=== PATIENT | female | born 1985 | race Caucasian/White ===

== ENCOUNTER 2016-06-03 19:05 | Emergency (ER) | payer OTHER ==
[2016-06-03 19:22] VITALS: BP 105/74
--- NOTE | 2016-06-03 19:41 | UC ---
Complaint Female HPI - HPI Summary HPI Summary: burning with urination for a couple of days. has been getting here period q 2 weeks after starting bc for no period for 1 year - History Of Current Complaint Chief Complaint: UCGU Stated Complaint: UTI COMPLAINT Time Seen by Provider: 06/03/16 19:24 Hx Obtained From: Patient Hx Last Menstrual Period: 05/14/16 ?: No Onset/Duration: Sudden Onset, Lasting Days, Still Present Timing: Constant Severity Initially: Mild Severity Currently: Mild Pain Intensity: 4 Pain Scale Used: 0-10 Numeric Character: Burning Aggravating Factor(s): Urination Alleviating Factor(s): Nothing Associated Signs And Symptoms: Positive: Vaginal Bleeding/Discharge - Allergies/Home Medications Allergies/Adverse Reactions: Allergies Allergy/AdvReac Type Severity Reaction Status Date / Time No Known Allergies Allergy Verified 09/14/15 11:28 Home Medications: Home Medications Terbutaline TAB* [Brethine TAB 2.5 MG*] 2.5 mg PO Q6H 06/03/16 [History Confirmed 06/03/16] PMH/Surg Hx/FS Hx/Imm Hx Previously Healthy: Yes Endocrine History Of: Denies: Diabetes, Thyroid Disease Cardiovascular History Of: Denies: Cardiac Disorders, Hypertension Respiratory History Of: Denies: COPD, Asthma GI/ History Of: Denies: Ulcer Psychological History Of: Reports: Anxiety, Depression - Surgical History Surgical History: None - Family History Known Family History: Positive: None, Hypertension - Social History Occupation: Employed Part-time, Student Lives: With Family Alcohol Use: None Substance Use Type: None Smoking Status (MU): Never Smoked Tobacco - Immunization History Most Recent Influenza Vaccination: 01/08/15 Most Recent Tetanus Shot: 12/12/14 Most Recent Pneumonia Vaccination: unknown Review of Systems Constitutional: Negative Skin: Negative Eyes: Negative ENT: Negative Respiratory: Negative Cardiovascular: Negative Gastrointestinal: Negative Genitourinary: Dysuria Motor: Negative Neurovascular: Negative Musculoskeletal: Negative Neurological: Negative Psychological: Negative All Other Systems Reviewed And Are Negative: Yes Physical Exam Triage Information Reviewed: Yes Appearance: Well-Appearing, No Pain Distress, Well-Nourished Vital Signs: Initial Vital Signs Temp 97.2 F 06/03/16 19:16 Pulse 76 06/03/16 19:16 BP 105/74 06/03/16 19:16 Pulse Ox 100 06/03/16 19:16 Vital Signs Reviewed: Yes Eye Exam: Normal Eyes: Positive: Conjunctiva Clear ENT Exam: Normal ENT: Positive: Normal ENT inspection, Hearing grossly normal, Pharynx normal, TMs normal. Negative: Nasal congestion, Nasal drainage, Tonsillar swelling, Tonsillar exudate, Trismus, Muffled/hoarse voice Dental Exam: Normal Neck exam: Normal Neck: Positive: Supple, Nontender, No Lymphadenopathy Respiratory Exam: Normal Respiratory: Positive: Chest non-tender, Lungs clear, Normal breath sounds, No respiratory distress, No accessory muscle use Cardiovascular Exam: Normal Cardiovascular: Positive: RRR, No Murmur, Pulses Normal, Brisk Capillary Refill Abdominal Exam: Normal Abdomen Description: Positive: Nontender, No Organomegaly, Soft Bowel Sounds: Positive: Present Musculoskeletal Exam: Normal Musculoskeletal: Positive: Strength Intact, ROM Intact, No Edema Neurological Exam: Normal Neurological: Positive: Alert, Muscle Tone Normal Psychological Exam: Normal Skin Exam: Normal UC Physical Exam Vital Signs On Initial Exam: Initial Vitals Temp Pulse BP Pulse Ox 97.2 F 76 105/74 100 06/03/16 19:16 06/03/16 19:16 06/03/16 19:16 06/03/16 19:16 - Genitalia Exam Female Genitourinary: Normal Vaginal Exam - no external lesion or irratation, inner labia majora tender to touch Diagnostics - Laboratory Diagnostic Studies Completed/Ordered: ua wnl u preg (-) Complaint Female Dx - Course Course Of Treatment: affirm, apptima, diflucan, deoderant free pads, a&D oinment for skin protection follow with Dr. Coffman - Differential Dx/Diagnosis Differential Diagnosis/HQI/PQRI: Retained Foreign Body, Urinary Tract Infection Provider Diagnoses: excoration of labia, dysuria, low back pain menstral cramps Discharge - Discharge Plan Condition: Stable Disposition: HOME Prescriptions: Fluconazole 150 MG (NF) [Diflucan 150 mg (NF)] 150 mg PO ONCE #1 tab Patient Education Materials: Vaginitis (ED), Dysuria (ED) Referrals: Christiana Coffman MD [Medical Doctor] - 1 Week No Primary Care Phys,NOPCP [Primary Care Provider] -
[2016-06-03] MEDS ORDERED: Ibuprofen TAB* 400 MG PO ONE (20:12)
== END 2016-06-03 20:27 | disposition home or self-care (01) ==
LOC: UCEAST 19:05
DX: S30.814A Abrasion of vagina and vulva, initial encounter (principal); X58.XXXA Exposure to other specified factors, initial encounter; Y93.9 Activity, unspecified; Y92.9 Unspecified place or not applicable; R30.0 Dysuria; M54.5 Low back pain; R10.30 Lower abdominal pain, unspecified; Z32.02 Encounter for pregnancy test, result negative
CPT/HCPCS: 81003; 84702; 87480; 87491; 87510; 87591; 87661; 99212; A9270-GY; G0463

== ENCOUNTER 2017-03-13 09:44 | Emergency (ER) | payer OTHER ==
--- OUTSIDE RECORDS SUMMARY | 2017-03-13 10:05 | XMS REPORT ---
:1985 External Reference #:[id number] Author Organization [facility] Address [address] [place] [address] Phone [phone] Care Team Providers Name Role Phone Curtis Garcia MD Primary Care Physician Unavailable Payers Type Date Identification Numbers Payment Provider Subscriber Commercial Expires: Policy Number: [employer] Courtney Anderson 2014 [id number] Administrators [address] [place] [address] Commercial Policy Number: [id number] [facility] Courtney Anderson PayID: [id number] [address] [place] [address] Medigap Part B Policy Number: [id number] Medicaid [place] Courtney Anderson PayID: [id number] [address] [place] [address] Problems Date Description Provider Status Onset: 06/11/2014 Primigravida Addis Linares NP Resolved Resolved: 09/30/2015 Family History Date Family Member(s) Problem(s) Comments Father Kidney Stones Mother due to Cervical Cancer () Mother Glaucoma Mother Parkinson's Disease Mother Thyroid Disease Children 1 First Daughter A&W Siblings 2 First Brother A&W First Sister Ovarian Cancer First Sister Uterine Cancer Paternal Grandfather A&W Paternal Grandfather due to Natural Causes () Paternal Grandmother Arthritis Paternal Grandmother due to Natural Causes () Maternal Grandfather due to Stomach Cancer () Maternal Grandmother Breast Cancer Maternal Grandmother Glaucoma Maternal Grandmother Parkinson's Disease Maternal Grandmother Stroke Social History Type Date Description Comments Education Highest level completed, 2 years of college Marital Status Lives With Lives With Daughter Diet Healthy, Well Balanced Pets None Occupation [employer] [place] Cigarette Use Never Smoked Cigarettes ETOH Use Occasionally consumes alcohol Recreational Drug Use Denies Drug Use Smoking Patient has never smoked Daily Caffeine Consumes on average 1 cup of coffee per day Exercise Type/Frequency Exercises rarely Seat Belt/Car Seat Always uses seat belt Currently Active Patient is currently sexually active Contraceptive Methods Current methods include oral contraceptives STD's No STD History Allergies, Adverse Reactions, Alerts Date Description Reaction Status Severity Comments 12/26/2013 NKDA active Medications Medication Date Status Form Strength Qnty SIG Indications Ordering Provider Nitrofurantoin 03/11 Active Capsules 100mg 14cap one tablet [facility] Monohyd s by mouth Sylvia twice a day M.DMeghan x 7 days Lidocaine HCL 03/11 Active Gel 2% 60ml apply thin [facility] layer to jayna Ward M.D. vaginal opening (avoid clitoris) 30 minutes before inserting anything vaginally, then wipe off Loestrin Fe 10/13 Active Tablets 1.5-30mg- 84tab 1 by mouth N93.8 Dvora 1.08/03 mcg s every day Raina Ward Timoptic 02/26 Active Solution 0.5% 1unit Twice Daily Unknown Ocud s Trusopt 02/26 Active Solution 2% 1unit Twice Daily s Ibuprofen 01/25 Active Tablets 600mg 30tab take one tab Phael s by mouth MD Huma every 6 hours as needed for pain Timolol Maleate 00/00 Active Unknown /0000 Vitamin D 00 Active Unknown (Cholecalcifero /0000 l) Brethine 06/03 Hx Tablets 2.5mg Q6H Unknown Rep - 01/19 Diflucan 06/03 Hx Tablets 150mg 1tabs Once - 10/13 Diflucan 02/26 Hx Tablets 150mg 1tabs Once - 03/09 10/23 Hx Tablets 27-0.8mg 30tab Take 1 Brigid s Tablet By Franky, - Mouth Every CNM Estrace 09/18 Hx Cream 0.1mg/GM 42uni use 1 gram Christiana ts vaginally 3 Coffman, - times a week 03/09 at night /2016 Cephalexin 02/25 Hx Capsules 500mg 14cap 1 by mouth s twice a day Augustus, - day for 7 Norethindrone 02/25 Hx Tablets 0.35mg 84tab take 1 s tablet by MD Huma - mouth every /2016 Ferrous 01/25 Hx Tablets 325(36Fe) 100ta take 1 tab Phaelon Gluconate /2014 mg bs by mouth 1-2 MD Huma - times per Proctofoam HC 01/25 Hx Foam 1-1% 1unit apply to s hemorrhoids MD Huma - three times 01/26 a day needed for discomfort Nystatin 01/15 Hx Powder 719070Jdt 60gm apply t/GM sparingly to [place], - affected M.D. 01/26 area twice a /2014 day until itch resolves Hydrocortisone 01/08 Hx Cream 1% 30gm apply to Omega A. Acetate area bid Gelbiju, - M.D. 01/08 Hydrocortisone 01/08 Hx Cream 1% 28gm apply to Omega A. Intensive area twice a Gelber, Healing - day M.D. 01/26 Nystatin 12/24 Hx Ointment 105410Tol 15gm apply to t/GM area bid Racheal Coffman MD 01/25 Metrogel-Vagina 11/25 Hx Gel 0.75% 1tube insert 1 Matt l applicatorCinyd ponce, - l before bed 01/25 each for 1 week. Miconazole 11/04 Hx Cream 2% [facility] N[facility]rate area twice a , Cindy, - day for 2 Clotrimazole-7 09/24 Hx Cream 1% 1Tube 1 applicator Omega Posadas every night Gelbiju, - at bedtime x M.D. 09/24 Terazol 7 09/24 Hx Cream 0.4% 45gm 1 applicator Omega Posadas qhs Gelber, - M.D. 01/25 09/19 Hx Capsules 28-0.8-23 30cap 1 by mouth Brigid 5mg s every day or Wilkins, - generic CNM 10/23 vitamins Terazol 7 07/30 Hx Cream 0.4% 1trea 1 tmen application Jump, - per vagina ANP-C 08/06 at bedtime x 7 Macrobid 07/30 Hx Capsules 100mg 14cap 1 by mouth Cori s twice a day Jump, - ANP-C 08/06 Ranitidine HCL 07/23 Hx Capsules 150mg 60cap 1 po bid Omega A. s Gelber, - M.D. 01/16 Zofran Odt 07/15 Hx Tablets 8mg 60tab 1 by mouth Christiana Dispers s every 8 as Augustus, - needed 08/22 Colace 07/15 Hx Capsules 100mg 90cap 1 by mouth s three times Wilkins, - a day as CNM 09/18 needed constipation Timolol Maleate 06/26 Hx Solution 0.25% Strom Gen lipscomb - Selene 09/18 Diclegis 06/[address] 10-10mg 60tab take 2 tabs Omega A. s po qhs, if Gelber, - nausea M.D. 06/25 starting day #3 add 1 tab po qam, if nausea persists add 1 tab po day #4 Terconazole 06/11 Hx Cream 0.8% 20g use 1 Baclaws vaginal , Cindy, - applicator 06/17 every night at bedtime x 3 days Metrogel-Vagina 04/25 Hx Gel 0.75% 1TX 1 applicator 616.10 Cori every night Jump, - at bedtime x ANP-C 04/29 5 Timolol Maleate Hx Solution 0.25% Unknown /0000 - 03/28 Flonase Allergy Hx Suspension 50mcg/Act Unknown Relief / - 09/18 00 Hx Tablets 90tab 1 by mouth Blumkin, Vitamins /0000 s every day Reji, - 09/19 Ondansetron Hx Unknown /0000 - 08/22 Immunizations CPT Code Status Date Vaccine Lot # [id number] Given 01/08/2015 Influenza Virus Vaccine Split Virus Use For [id number] Individual 3Yr Older [id number] Given 12/12/2014 Tetnus, Diptheria Toxoids And Acellular Pertussis, [id number] PT > 7Yrs Old Vital Signs Date Vital Result Comment 03/11/2017 BP Systolic 110 mmHg BP Diastolic 70 mmHg Height 64 inches 5'4" Weight 140.00 lb BMI (Body Mass Index) 24.0 kg/m2 Last Menstrual Period 3510291 2 Parity 1 01/19/2017 BP Systolic 108 mmHg BP Diastolic 62 mmHg Height 64 inches 5'4" Weight 141.00 lb BMI (Body Mass Index) 24.2 kg/m2 Last Menstrual Period 1662500 2 Parity 1 10/13/2016 BP Systolic 112 mmHg BP Diastolic 64 mmHg Height 64 inches 5'4" Weight 143.00 lb BMI (Body Mass Index) 24.5 kg/m2 Last Menstrual Period 4708629 2 Parity 1 06/23/2016 BP Systolic 110 mmHg BP Diastolic 70 mmHg Height 64 inches 5'4" Weight 140.00 lb BMI (Body Mass Index) 24.0 kg/m2 Last Menstrual Period 9082758 2 Parity 1 06/03/2016 BP Systolic 105 mmHg BP Diastolic 74 mmHg Body Temperature 97.2 F Heart Rate 76 /min Height 64 inches Weight 135.00 lb BMI (Body Mass Index) 23.1 kg/m2 03/09/2016 BP Systolic 102 mmHg BP Diastolic 60 mmHg Height 63 inches 5'3" Weight 136.00 lb BMI (Body Mass Index) 24.1 kg/m2 Last Menstrual Period 0865839 2 Parity 1 02/27/2016 BP Systolic 102 mmHg BP Diastolic 62 mmHg Body Temperature 97.8 F Heart Rate 67 /min Respiratory Rate 16 /min 09/19/2015 BP Systolic 104 mmHg BP Diastolic 66 mmHg Height 63 inches 5'3" Weight 143.00 lb BMI (Body Mass Index) 25.3 kg/m2 Last Menstrual Period 1386522 2 Parity 1 02/25/2015 BP Systolic 110 mmHg BP Diastolic 72 mmHg Height 63 inches 5'3" Weight 157.00 lb BMI (Body Mass Index) 27.8 kg/m2 Last Menstrual Period 0931486 2 Parity 1 01/28/2015 BP Systolic 128 mmHg BP Diastolic 86 mmHg Body Temperature 98.7 F Height 63 inches 5'3" Weight 167.00 lb BMI (Body Mass Index) 29.6 kg/m2 Last Menstrual Period 4708431 2 Parity 1 07/30/2014 BP Systolic 102 mmHg BP Diastolic 68 mmHg Height 63 inches 5'3" Weight 137.00 lb BMI (Body Mass Index) 24.3 kg/m2 Last Menstrual Period 1241011 2 Parity 0 06/26/2014 BP Systolic 106 mmHg BP Diastolic 70 mmHg Height 63 inches 5'3" Weight 133.00 lb BMI (Body Mass Index) 23.6 kg/m2 Last Menstrual Period 1607394 2 Parity 0 06/11/2014 BP Systolic 112 mmHg BP Diastolic 62 mmHg Height 64 inches 5'4" Weight 134.00 lb BMI (Body Mass Index) 23.0 kg/m2 Last Menstrual Period 3415096 2 Parity 0 04/25/2014 BP Systolic 104 mmHg BP Diastolic 66 mmHg Height 64 inches 5'4" Weight 138.00 lb BMI (Body Mass Index) 23.7 kg/m2 Last Menstrual Period 4589821 1 Parity 0 12/26/2013 BP Systolic 112 mmHg BP Diastolic 74 mmHg Height 64 inches 5'4" Weight 136.00 lb BMI (Body Mass Index) 23.3 kg/m2 Last Menstrual Period 7041967 1 Parity 0 Results Test Date Test Result H/L Range Note Laboratory test 03/11/2017 Gardnerella/Yeast: <pending&gt finding Vaginal Dna ; Laboratory test 01/19/2017 Cytology SEE RESULT 1 finding BELOW Laboratory test 10/13/2016 Culture Genital SEE RESULT 2 finding & Sensitivity BELOW Laboratory Studies 06/03/2016 Bedside Urine 1.020 1.010-1.030 Specific [place] (Lab Bedside Urine Urobilinogen (Lab) 0.2 Bedside Urine pH (Lab) 7.0 5-9 Laboratory test finding 09/19/2015 Cytology SEE RESULT BELOW 3 Human Papilloma Virus Rna Negative Negative 4 Laboratory test 01/15/2015 Culture Genital & SEE RESULT BELOW 5 finding Sensitivity Laboratory test 01/08/2015 Genital For GRP B SEE RESULT BELOW 6 finding Strep Only Laboratory test 12/12/2014 Culture Genital & SEE RESULT BELOW 7 finding Sensitivity Laboratory test 11/04/2014 Culture Genital & SEE RESULT BELOW 8 finding Sensitivity Laboratory test 11/04/2014 Glucose 1 HR Post 97 mg/dL 70-160 finding Prandial CBC With No Diff 11/04/2014 White Blood Count 11.2 10^3/uL High 4.8-10.8 Red Blood Count 4.19 10^6/uL 4.0-5.4 Hemoglobin 12.3 g/dL 12.0-16.0 Hematocrit 39 % 35-47 Mean Corpuscular Volume 93 fL 80-97 Mean Corpuscular Hemoglobin 29 pg 27-31 Mean Corpuscular HGB Conc 32 g/dL 31-36 Red Cell Distribution Width 15 % 10.5-15 Platelet Count 368 10^3/uL 150-450 Mean Platelet Volume 8 um3 7.4-10.4 Urinalysis Profile 10/03/2014 Urine Color Yellow Urine Appearance Cloudy Urine Specific [place] 1.020 1.010-1.030 Urine pH 5.0 5-9 Urine Urobilinogen Negative Negative Urine Ketones Negative Negative Urine Protein Negative Negative Urine Leukocytes Trace Negative Urine Blood Negative Negative * * Negative 9 Urine Nitrite Negative Negative Urine Bilirubin Negative Negative Urine Glucose 3+(>=500 mg/dL) Negative Urine White Blood Cell 3+(>20/hpf) Absent Urine Red Blood Cell Trace(0-2/hpf) Absent Urine Bacteria Absent Absent Urine Squamous Epithelial Cell Present Absent Urine Culture And 10/03/2014 Urine Culture SEE RESULT 10 Sensitivities BELOW Laboratory test finding 09/19/2014 Glucose 1 HR Post 86 mg/dL 70-160 Prandial Laboratory test finding 08/22/2014 Culture Genital & SEE RESULT 11 Sensitivity BELOW Sequential Integreated 08/22/2014 Interpretation SEE BELOW 12 SCRN 2 [place] Risk For Ontd <1:5000 Age Risk Down Syndrome 1:660 [facility] Down Syndrome Risk 1:670 <1:270 [facility] Trisomy 18 Risk <1:5000 <1:100 Calculated Gestational Age 16.7 13 Afp,Serum 21.9 ng/mL Afp Mom 0.61 14 HCG,Serum 33.4 IU/mL HCG Mom 1.04 Estriol,Free 0.81 ng/mL Estriol Mom 0.74 Inhibin A,Dimeric 166 pg/mL Inhibin A Mom 1.00 Romi-A 550 ng/mL Romi-A Mom 0.55 NT Mom 1.29 15 Referring Physician Name OLEG Referring Physician Phone [phone] Referring Physician Npi NG Specimen # From Part 1 [id number] Date Of 1985 Collection Date 08/22/2014 Maternal Weight 137 lbs Est'd Date Of Delivery 01/31/2015 Nuchal Translucency 1.8 mm [place] Rump Length 61 mm Ultrasound Date 07/23/2014 Nasal Bone NOT GIVEN Mother's Ethnic Origin Insulin Depend Diabetic N Repeat Specimen N Number Of Fetuses 1 HX Of Neural Tube Defects N Twin B Nasal Bone NOT GIVEN 16 Urine Culture And 07/30/2014 Urine Culture SEE RESULT BELOW 17 Sensitivities Cystic Fibrosis Car[place] ([place]) 07/23/2014 Reported Ethnicity N/P CF Result see note 18 Interpretation see note 19 Mutations/Polymorphisms see note 20 Method see note 21 Reviewer see note 22 Sequential Integrated SCRN 1 [place] 07/23/2014 Interpretation SEE BELOW 23 Age Risk Down Syndrome 1:490 DEANGELO Down Syndrome Risk IN PROCESS <1:50 DEANGELO Trisomy 18 Risk IN PROCESS <1:100 Calculated Gestational Age 12.4 24 Romi-A 550 ng/mL Romi-A Mom 0.70 HCG,Serum 85.1 IU/mL HCG Mom 1.03 NT Mom 1.29 25 Referring Physician Name OMEGA ARRIAGA 26 Referring Physician Phone [phone] Referring Physician Npi [id number] Date Of 1985 29 Collection Date 07/23/2014 30 Maternal Weight 133 lbs 31 Est'd Date Of Delivery 01/31/2015 32 IGNACIO Determined By US 33 Mother's Ethnic Origin 34 Number Of Fetuses 1 35 Insulin Depend Diabetic N 36 Repeat Specimen N 37 HX Of Neural Tube Defects N 38 Prev Down Synd N 39 Donor Egg N 40 Donor Age:Egg Retrieval NOT GIVEN 41 Ultrasound Date 07/23/2014 42 [employer] Filler Cig[employer] Rol[employer] Machine's Name TOM 43 NTQR Long Filler Cigar Roller Machine Id# [id number] NTQR Location Id# [id number] NTQR Reading Phys Id# [id number] FMF Long Filler Cigar Roller Machine Id# NOT GIVEN 47 [place] Rump Length 61 mm 48 Nuchal Translucency 1.8 mm 49 Nasal Bone NOT GIVEN 50 If Twins NOT GIVEN 51 Twin B CRL NOT GIVEN mm 52 Twin B NT NOT GIVEN mm 53 Twin B Nasal Bone NOT GIVEN 54 HIV 1/2 AB Evaluation 07/23/2014 HIV 1 2 Antibody Nonreactive Nonreactive 55 Type And Screen 07/23/2014 Patient Blood Type O Positive Antibody Screen NEGATIVE CBC With No Diff 07/23/2014 White Blood Count 7.5 10^3/uL 4.8-10.8 Red Blood Count 4.12 10^6/uL 4.0-5.4 Hemoglobin 12.9 g/dL 12.0-16.0 Hematocrit 39 % 35-47 Mean Corpuscular Volume 94 fL 80-97 Mean Corpuscular Hemoglobin 31 pg 27-31 Mean Corpuscular HGB Conc 33 g/dL 31-36 Red Cell Distribution Width 14 % 10.5-15 Platelet Count 307 10^3/uL 150-450 Mean Platelet Volume 8 um3 7.4-10.4 RPR 07/23/2014 Pediatric/Maternal YES RPR Nonreactive Nonreactive RPR Titer TNP Syphilis IgG TNP Nonreactive PNL No Urine 07/23/2014 Rubella Screen Immune IU/mL Immune Hemoglobin A1c 4.8 % Less than 6.0 56 Hepatitis B Surface Ag Nonreactive Nonreactive 57 Urine Culture And 06/26/2014 Urine Culture (SEE NOTE) 58 Sensitivities GC/Chlamydia Dna Probe 06/11/2014 Chlamydia trachomatis Negative Negative Rna Neisseria gonorrhoeae (GC) Rna Negative Negative 59 Laboratory test finding 06/11/2014 Gardnerella/Yeast: Vaginal Dna (SEE NOTE ) 60 Trichomonas vaginalis Rna Negative Negative 61 Pap Plus HPV 12/26/2013 CoPathPlus HPV HR- 62 1 SEE RESULT BELOW Name: COURTNEY ANDERSON : [address]: Cori Malone Acct: [id number] Unit: [id number] AGE: 31 Location: [facility] Re01/19/17 SEX: F Status: REG REF SPEC: [id number] CASSANDRA: 01/19/[address]: Cori Malone REQ: [id number] RECD: 01/19/17-1251 STATUS: SOUT _ ORDERED: TP IMAGE ANAL, HPV/Thin Prep COMMENTS: [id number] FINAL DIAGNOSIS Negative for Intraepithelial lesion or Malignancy A. Ectocervical/Endocervical Specimen Adequacy: Satisfactory of evaluation Transformation zone component identified Patient Information: HPV: High risk HPV RNA testing regardless of pap results. Actual Specimen Date: 01/19/17 Last Menstrual Date: 01/12/17 Date of Last Specimen: 09/19/15 Date Time Test Result Flag (u) Normal Range 01/19/17815 @ HPV RNA Negative Negative @ @ The high-risk HPV types detected by the assay include: 16, @ 18, 31, 33, 35, 39, 45, 51, 52, 56, 58, 59, 66, and 68. Signed JOSEPH Schultz (ASCP) 01/25 9191 This Pap test was evaluated with the assistance of the ThinPrep Test Imaging System. Due to cytologic findings at the staff air tactical officer microscope, comprehensive manual rescreening by a Cinder Block Mason may be required. The Pap Smear is a screening test designed to aid in the detection of premalignant and malignant conditions of the uterine cervix. It is not a diagnostic procedure and should not be used as the sole means of detecting cervical cancer. Both false- positive and false- negative reports do occur. Depending on your risk status, a Pap smear should be obtained and evaluated every 1-3 years. END OF REPORT * ML=Testing performed at Main Lab DEPARTMENT OF PATHOLOGY, [address] [place] [address] Reji Garcia M.D. Director [facility] # [id number] 2 SEE RESULT BELOW Name: COURTNEY ANDERSON : [address]: Cori Malone Acct: [id number] Unit: [id number] AGE: 30 Location: [facility] Re10/13/16 SEX: F Status: REG REF SPEC: [id number] CASSANDRA: 10/13/16 [facility] [address]: Cori Malone REQ: [id number] RECD: 10/13/16 STATUS: COMP _ SOURCE: VAGINAL SPDESC: ORDERED: Genital Culture COMMENTS: [id number] Procedure Result Reported Site Genital Culture Final 10/15/16- 1050 ML Organism 1 NORMAL MEI Quantity 2+ Routine genital cultures do not include selective agar for Neisseria gonorrhoeae. Molecular testing offers better test sensitivity and therefore is the preferred test methodology for identifying this organism. * ML - MAIN LAB ([facility]) . END OF REPORT * ML=Testing performed at Main Lab DEPARTMENT OF PATHOLOGY, [address] [place] [address] Reji Garcia M.D. Director [facility] # [id number] 3 SEE RESULT BELOW Name: COURTNEY ANDERSON : [address]: Christiana Coffman MD Acct: [id number] Unit: [id number] AGE: 29 Location: [facility] Re09/19/15 SEX: F Status: REG REF SPEC: [id number] CASSANDRA: 09/19/[address]: Christiana Coffman MD REQ: [id number] RECD: 09/19/15 STATUS: SOUT _ ORDERED: IMAGE ANALYSIS, HPV/Thin Prep COMMENTS: [id number] FINAL DIAGNOSIS Negative for Intraepithelial lesion or Malignancy A. Ectocervical/Endocervical Specimen Adequacy: Satisfactory of evaluation Transformation zone component cannot be definitely identified due to presence of atrophy or other hormonal changes Patient Information: HPV: High risk HPV RNA testing regardless of pap results. Actual Specimen Date: 09/19/15 Last Menstrual Date: 04/03/14 Date of Last Specimen: 12/28/13 Date Time Test Result Flag (u) Normal Range 09/19/15 1324 HPV RNA Negative Negative The high-risk HPV types detected by the assay include: 16, 18, 31, 33, 35, 39, 45, 51, 52, 56, 58, 59, 66, and 68. Signed (signature on file) JOSEPH Whitt(ASCP) 09/21 1301 This Pap test was evaluated with the assistance of the CleanifyPrep Test Imaging System. Due to cytologic findings at the staff air tactical officer microscope, comprehensive manual rescreening by a Cinder Block Mason may be required. The Pap Smear is a screening test designed to aid in the detection of premalignant and malignant conditions of the uterine cervix. It is not a diagnostic procedure and should not be used as the sole means of detecting cervical cancer. Both false- positive and false- negative reports do occur. Depending on your risk status, a Pap smear should be obtained and evaluated every 1-3 years. END OF REPORT * ML=Testing performed at Main Lab DEPARTMENT OF PATHOLOGY, [address] [place] [address] Reji Garcia M.D. Director [facility] # [id number] 4 The high-risk HPV types detected by the assay include: 16, 18, 31, 33, 35, 39, 45, 51, 52, 56, 58, 59, 66, and 68. 5 SEE RESULT BELOW Name: COURTNEY ANDERSON : [address]: Caro Ward MD Acct: [id number] Unit: [id number] AGE: 29 Location: [facility] Re01/15/15 SEX: F Status: REG REF SPEC: [id number] CASSANDRA: 01/15/15-1458 [facility] [address]: Caro Ward MD REQ: [id number] RECD: 01/16/15 STATUS: COMP _ SOURCE: VAGINAL SPDESC: ORDERED: Genital Culture Procedure Result Verified Site Genital Culture Final 01/18/15- 0858 ML Organism 1 NORMAL MEI Quantity 3+ * ML - MAIN LAB ([facility]) . END OF REPORT * ML=Testing performed at Main Lab DEPARTMENT OF PATHOLOGY, [address] [place] [address] Reji Garcia M.D. Director [facility] # [id number] 6 SEE RESULT BELOW Name: COURTNEY ANDERSON : [address]: Omega Arriaga MD Acct: [id number] Unit: [id number] AGE: 29 Location: [facility] Re01/08/15 SEX: F Status: REG REF SPEC: [id number] CASSANDRA: 01/08/15-[address] [facility] [address]: Omega Arriaga MD REQ: [id number] RECD: 01/08/15 STATUS: COMP _ SOURCE: CER/VAG/RE SPDESC: ORDERED: Bernard Ball Strp Scrn QUERIES: Is Patient Penicillin Allergic? N Is patient penicillin allergic and/or sensitivities needed? N Provider Requisition # C77#[id number]_ Procedure Result Verified Site Group B Strep Culture Screen Final 01/10/15- 1130 ML Group B Strep Screen Negative * ML - MAIN LAB ([facility]) . END OF REPORT * ML=Testing performed at Main Lab DEPARTMENT OF PATHOLOGY, [address] [place] [address] Reji Garcia M.D. Director [facility] # [id number] 7 SEE RESULT BELOW Name: COURTNEY ANDERSON : [address]: Christiana Coffman MD Acct: [id number] Unit: [id number] AGE: 29 Location: [facility] Re12/12/14 SEX: F Status: REG REF SPEC: [id number] CASSANDRA: 12/12/14-[address]: Christiana Coffman MD REQ: [id number] RECD: 12/12/14 STATUS: COMP _ SOURCE: CERVIX SPDESC: ORDERED: Genital Culture Procedure Result Verified Site Genital Culture Final 12/14/141137 ML Organism 1 NORMAL MEI Quantity 2+ * ML - MAIN LAB ([facility]) . END OF REPORT * ML=Testing performed at Main Lab DEPARTMENT OF PATHOLOGY, [address] [place] [address] Reji Garcia M.D. Director [facility] # [id number] 8 SEE RESULT BELOW Name: COURTNEY ANDERSON : [address]: Christiana Coffman MD Acct: [id number] Unit: [id number] AGE: 28 Location: [facility] Re11/04/14 SEX: F Status: REG REF SPEC: [id number] CASSANDRA: 11/04/14-[address] [facility] [address]: Christiana Coffman MD REQ: [id number] RECD: 11/04/14 STATUS: COMP _ SOURCE: CERVIX KRISSESC: ORDERED: Genital Culture Procedure Result Verified Site Genital Culture Final 11/06/14- 917 ML Organism 1 NORMAL MEI Quantity 3+ * ML - MAIN LAB ([facility]) . END OF REPORT * ML=Testing performed at Main Lab DEPARTMENT OF PATHOLOGY, [address] [place] [address] Reji Garcia M.D. Director [facility] # [id number] 9 *Ascorbic acid is present which may interfere with detection of blood. 10 SEE RESULT BELOW Name: JUSTINCOURTNEY : [address]: Caro Ward MD Acct: [id number] Unit: [id number] AGE: 28 Location: LAB Re10/03/14 SEX: F Status: REG REF SPEC: [id number] CASSANDRA: 10/03/14-1550 [facility] [address]: Caro Ward MD REQ: [id number] RECD: 10/03/14 STATUS: COMP _ SOURCE: URINE SPDESC: ORDERED: Urine Culture COMMENTS: not filled to minimum fill line Procedure Result Verified Site Urine Culture Final 10/05/14- 934 ML Organism 1 NORMAL MEI [place] Count 1-10,000 (Few) CFU/ML * ML - MAIN LAB ([facility]) . END OF REPORT * ML=Testing performed at Main Lab DEPARTMENT OF PATHOLOGY, [address] [place] [address] Reji Garcia M.D. Director [facility] # [id number] 11 SEE RESULT BELOW Name: COURTNEY ANDERSON : [address]: Cori Ramirez BUSINESS LEADER Acct: [id number] Unit: [id number] AGE: 28 Location: [facility] Re08/22/14 SEX: F Status: REG REF SPEC: [id number] CASSANDRA: 08/22/14-[address]: Cori Ramirez BUSINESS LEADER REQ: [id number] RECD: 08/22/14-1108 STATUS: COMP _ SOURCE: CERVIX SPDESC: ORDERED: Genital Culture Procedure Result Verified Site Genital Culture Final 08/24/14- 0823 ML Organism 1 NORMAL MEI Quantity 2+ Routine genital cultures do not include selective agar for Neisseria gonorrhoeae. Molecular testing offers better test sensitivity and therefore is the preferred test methodology for identifying this organism. * ML - MAIN LAB ([facility]) . END OF REPORT * ML=Testing performed at Main Lab DEPARTMENT OF PATHOLOGY, [address] [place] [address] Reji Garcia M.D. Director [facility] # [id number] 12 SCREEN NEGATIVE FOR OPEN NTD, DOWN SYNDROME AND TRISOMY 18. NT WAS USED IN THE RISK CALCULATIONS. 13 [place] rump length (CRL) was used to calculate gestational age. IGNACIO, if provided, was not used for gestational age dating. 14 Reference Range: <2.50 IDD <1.90 TWINS <4.00 TWINS IDD <3.50 TRIPLETS <4.50 15 The Sequential Integrated Screen combines ROMI-A and hCG with or without a nuchal translucency measurement in the first trimester with AFP, unconjugated estriol, intact hCG and Inhibin A in the second trimester. This provides a useful screening test for detection of open neural tube defects, Down syndrome and Trisomy 18. It should be noted that normal results can never guarantee the of a normal baby and that 2 to 3 percent of newborns have some type of physical or mental defect, many of which are undetectable through any known diagnostic technique. Interpretation reviewed by: Tiffanie Land, Ph.D., [facility]. This is a screening test, not a diagnostic test. This risk assessment is based on demographic data provided by the ordering physician. Please notify the laboratory promptly if any data are incorrect. If you have questions concerning this report: For clinical consultation, call ; For technical questions, call ext [phone]; For recalculations, fax to . This test was developed and its performance characteristics have been determined by [employer] [facility]. Performance characteristics refer to the analytical performance of the test. 16 For additional information, please refer to http://education.Citygoo/faq/FAQ94 (This link is provided for informational/educational purposes only.) 17 SEE RESULT BELOW Name: ANDERSONCOURTNEY : [address]: Cori Ramirez BUSINESS LEADER Acct: [id number] Unit: [id number] AGE: 28 Location: [facility] Re07/30/14 SEX: F Status: REG REF SPEC: [id number] CASSANDRA: 07/30/14-13[address] [facility] [address]: Cori Ramirez BUSINESS LEADER REQ: [id number] RECD: 07/30/141921 STATUS: COMP _ SOURCE: URINE SPDESC: ORDERED: Urine Culture Procedure Result Verified Site Urine Culture Final 08/01/14- 0950 ML Organism 1 NORMAL MEI [place] Count 1-10,000 (Few) CFU/ML * ML - MAIN LAB ([facility]) . END OF REPORT * ML=Testing performed at Main Lab DEPARTMENT OF PATHOLOGY, [address] [place] [address] Reji Garcia M.D. Director [facility] # [id number] 18 NEGATIVE; NONE OF THE MUTATIONS LISTED BELOW WERE DETECTED 19 This result does not rule out the presence of a mutation or a diagnosis of cystic fibrosis disease (CF). The risk for mutations that cause CF other than the ones tested depends greatly on family history, clinical presentation, and ethnicity. Chance of Having a CF Mutation Ethnic Group Detection Before After Negative Rate Test Result Ashkenazi Taoist 94% 1 in 24 1 in 400 Non- 88% 1 in 25 1 in 208 -Scottish 72% 1 in 46 1 in 164 -Scottish 65% 1 in 65 1 in 186 -Scottish 49% 1 in 94 1 in 184 Other insufficient data available 20 G85E (c.254G>A) R334W (c.1000C>T) 394delTT (c.262delTT) R347H (c.1040G>A) R117H (c.350G>A) R347P (c.1040G>C) 621+1 G>T (c.489+1G>T) A455E (c.1364C>A) 711+1 G>T (c.579+1G>T) 1507del (c.1519delATC) 1078delT (c.948delT) B951dtd (c.1521delCTT) V520F (c.1558G>T) R553X (c.1657C>T) 1717-1 G>A (c.1585-1G>A) R560T (c.1679G>C) G542X (c.1624G>T) 1898+1 G>A (c.1766+1G>A) S549N (c.1646G>A) 2183AA>G (c.2051delAAinsG) S549R (c.1645A>C or c.1647T>G) 2184delA (c.2052delA) G551D (c.1652G>A) 2789+5 G>A (c.2657+5G>A) 3120+1 G>A (c.2988+1G>A) C1040I (c.3846G>A) U9716Q (c.3484C>T) M1892Z (c.3909C>G) 3659delC (c.3528delC) 3849+10kb C>T (C.3717+08157X>T) 3876delA (c.3744delA) 3905insT (c.3773insT) This assay detects thirty-two mutations, including the twenty-three core mutations recommended by the [employer] (ACMG) and the [place] Congress of Obstetricians and Gynecologists (ACOG) for population-based CF carrier screening. In addition to the ACMG/ACOG panel, this assay detects nine additional mutations. While these mutations are rare in the [place] population, the scientific and medical literature indicates that these mutations are not benign polymorphisms. The status of the intron 9 (formerly intron 8) polyT tract is reported only when the R117H mutation is detected. 21 The mutations are detected by multiplex-polymerase chain reaction (PCR) amplification of specific CF gene regions, followed by nucleotide sequence analysis on a massively parallel sequencing platform. Although rare, false positive or false negative results may occur. All results should be interpreted in the context of clinical findings, relevant history, and other laboratory data. 22 Feng Wilde, Ph.D.,[facility] Director, Molecular Genetics Health care providers, please contact your local [employer] genetic counselor or call [employer] ([phone]) for assistance with interpretation of these results. The performance characteristics of this assay have been determined by [employer]. Performance characteristics refer to the analytical performance of the test. For more information on this test, go to http://education.Nook Media.Oncolix/faq/cfscreen 23 This patient's risk does not exceed the first trimester cut-off for Down syndrome or trisomy 18. The integrated screen calculation is awaiting the second trimester sample. NT WAS USED IN THE RISK CALCULATIONS. Thank you for submitting this patient's Part 1 specimen. These first trimester values will be incorporated with the second trimester values as part of the integrated testing process. Please submit the Part 2 specimen between 08/10/2014-10/04/2014 (15.0 and 22.9 weeks gestation) with 08/10/2014-08/23/2014 (15.0 - 16.9 weeks gestation) being optimal. When submitting Part 2, please include the following Specimen # from Part 1: [id number] 24 [place] rump length (CRL) was used to calculate gestational age. IGNACIO, if provided, was not used for gestational age dating. 25 Interpretation reviewed by: Farhat Boogie, Ph.D., [facility] This is a screening test, not a diagnostic test. This risk assessment is based on demographic data provided by the ordering physician. Please notify the laboratory promptly if any data are incorrect. If you have questions concerning this report: For clinical consultation, call ; For technical questions, call ext [phone]; For recalculations, fax to . This test was developed and its performance characteristics have been determined by [employer] [facility]. Performance characteristics refer to the analytical performance of the test. For additional information, please refer to http://Lifesquare/faq/FAQ89 (This link is being provided for informational/educational purposes only.) 26 For additional information, please refer to http://Lifesquare/faq/FAQ89 (This link is being provided for informational/educational purposes only.) 27 For additional information, please refer to http://Lifesquare/faq/FAQ89 (This link is being provided for informational/educational purposes only.) 28 For additional information, please refer to http://Lifesquare/faq/FAQ89 (This link is being provided for informational/educational purposes only.) 29 For additional information, please refer to http://Lifesquare/faq/FAQ89 (This link is being provided for informational/educational purposes only.) 30 For additional information, please refer to http://Lifesquare/faq/FAQ89 (This link is being provided for informational/educational purposes only.) 31 For additional information, please refer to http://Lifesquare/faq/FAQ89 (This link is being provided for informational/educational purposes only.) 32 For additional information, please refer to http://Lifesquare/faq/FAQ89 (This link is being provided for informational/educational purposes only.) 33 For additional information, please refer to http://Lifesquare/faq/FAQ89 (This link is being provided for informational/educational purposes only.) 34 PERSIAN/ For additional information, please refer to http://Lifesquare/faq/FAQ89 (This link is being provided for informational/educational purposes only.) 35 For additional information, please refer to http://Lifesquare/faq/FAQ89 (This link is being provided for informational/educational purposes only.) 36 For additional information, please refer to http://Lifesquare/faq/FAQ89 (This link is being provided for informational/educational purposes only.) 37 For additional information, please refer to http://Lifesquare/faq/FAQ89 (This link is being provided for informational/educational purposes only.) 38 For additional information, please refer to http://Lifesquare/faq/FAQ89 (This link is being provided for informational/educational purposes only.) 39 For additional information, please refer to http://Lifesquare/faq/FAQ89 (This link is being provided for informational/educational purposes only.) 40 For additional information, please refer to http://Lifesquare/faq/FAQ89 (This link is being provided for informational/educational purposes only.) 41 For additional information, please refer to http://Lifesquare/faq/FAQ89 (This link is being provided for informational/educational purposes only.) 42 For additional information, please refer to http://Lifesquare/faq/FAQ89 (This link is being provided for informational/educational purposes only.) 43 For additional information, please refer to http://Lifesquare/faq/FAQ89 (This link is being provided for informational/educational purposes only.) 44 For additional information, please refer to http://Lifesquare/faq/FAQ89 (This link is being provided for informational/educational purposes only.) 45 For additional information, please refer to http://Lifesquare/faq/FAQ89 (This link is being provided for informational/educational purposes only.) 46 For additional information, please refer to http://Lifesquare/faq/FAQ89 (This link is being provided for informational/educational purposes only.) 47 For additional information, please refer to http://Lifesquare/faq/FAQ89 (This link is being provided for informational/educational purposes only.) 48 For additional information, please refer to http://Lifesquare/faq/FAQ89 (This link is being provided for informational/educational purposes only.) 49 For additional information, please refer to http://Lifesquare/faq/FAQ89 (This link is being provided for informational/educational purposes only.) 50 For additional information, please refer to http://Lifesquare/faq/FAQ89 (This link is being provided for informational/educational purposes only.) 51 For additional information, please refer to http://Lifesquare/faq/FAQ89 (This link is being provided for informational/educational purposes only.) 52 For additional information, please refer to http://Lifesquare/faq/FAQ89 (This link is being provided for informational/educational purposes only.) 53 For additional information, please refer to http://Lifesquare/faq/FAQ89 (This link is being provided for informational/educational purposes only.) 54 For additional information, please refer to http://Lifesquare/faq/FAQ89 (This link is being provided for informational/educational purposes only.) 55 It is recognized that currently available assays for the detection of antibodies to HIV-1 and/or HIV-2 may not detect all infected individuals. HIV antibodies may be undetectable in some stages of the infection and in some clinical conditions. The performance of this assay has not been established for populations of infants or children. Assayed by Chemiluminescence Microparticle Immunoassay on the Siemens Advia Centaur CP. Values obtained with different methods or kits cannot be used interchangeably.The diagnostic specificity of the ADVIA Centaur 1/O/2 Enhanced assay in the low risk population was 99.90% (6052/6058) with a 95% confidence interval of 99.78 to 99.96%. 56 Therapeutic target for the treatment of diabetes Mellitus patients is <7% HBA1C, and in selective patients <6.0%.Please refer to [place] Diabetes Association Diabetic care guidelines for further information. 57 , Pediatric (<=12yrs) or Maternal?: YES 58 RUN DATE: 06/28/14 [facility] LAB LIVE PAGE 1 RUN TIME: [address] [place], [place] [address] Specimen Inquiry Name: COURTNEY ANDERSON : [address]: Addis Linares NP Acct: [id number] Unit: [id number] AGE: 28 Location: [facility] Re06/26/14 SEX: F Status: REG REF SPEC: [id number] CASSANDRA: 06/26/14-[address]: Addis Linares NP REQ: [id number] RECD: 06/26/14-163 STATUS: COMP _ SOURCE: URINE SPDESC: ORDERED: Urine Culture QUERIES: Provider Requisition # [id number] Procedure Result Verified Site Urine Culture Final 06/28/14- 1010 ML Organism 1 NORMAL MEI [place] Count 25-50,000 (Moderate) CFU/ML * ML - MAIN LAB ([facility]) . END OF REPORT * ML=Testing performed at Main Lab DEPARTMENT OF PATHOLOGY, [facility] [employer] [place], [place] [address] Reji Garcia M.D. Director [facility] # [id number] 59 Female urine specimens have been self-validated by [facility] and have been granted conditional assay approval by [facility]. 60 RUN DATE: 06/12/14 [facility] LAB LIVE PAGE 1 RUN TIME: 1406 [facility] [employer] [place], [place] [address] Specimen Inquiry Name: COURTNEY ANDERSON : [address]: Addis Linares NP Acct: [id number] Unit: [id number] AGE: 28 Location: [facility] Re06/11/14 SEX: F Status: REG REF SPEC: [id number] CASSANDRA: 06/11/14-[address] [facility] [address]: Addis Linares NP REQ: [id number] RECD: 06/11/14 STATUS: COMP _ SOURCE: VAGINAL SPDESC: ORDERED: Leland,Yeast DNA QUERIES: Provider Requisition # [id number] Procedure Result Verified Site Gardnerella/Yeast: Vaginal DNA Final 06/12/14- 1405 ML Organism 1 Negative Gardnerella Organism 2 Negative Anna The presence of G. vaginalis, although suggestive, is not diagnostic for bacterial vaginosis. Results should be interpreted in conjuction with other clinical and laboratory data available. Women with vaginal discharge should be evaluated for risk factors of cervicitis and pelvic inflammatory disease, toxic shock syndrome (S.aureus), and if present, evaluated for organisms not included in this assay such as N. gonorrhoeae, C. trachomatis, Mobiluncus, Mycoplasma and/or Prevotella. Mixed infections may occur. The performance of this test on patient specimens collected during or immediately after antimicrobial therapy is unknown. The presence or absence of Anna species, or G. vaginalis cannot be used as a test for therapeutic success or failure. * ML - MAIN LAB ([facility]) . END OF REPORT * ML=Testing performed at Main Lab DEPARTMENT OF PATHOLOGY, [address] [place] [address] Reji Garcia M.D. Director [facility] # [id number] 61 Endocervical Endocervical 62 Cytology Laboratory [address] [place] [address], [facility] [address] [place] [address] CYTOLOGY REPORT Name: Courtney Anderson : 1985 (Age: 28) Sex: F Location: [place] INTERIOR DECORATOR [facility] Med. Rec. # [id number] Date Collected: 12/26/2013 Billing #: [id number] Date Received: 12/27/2013 Requisition # [id number] Physician(s): NICOL FINN MD Source of Specimen: ENDOCERVICAL/ECTOCERVICAL THIN PREP Clinical Information: Date of Last Menstrual Period: 12/06/2013 Interpretation: NEGATIVE FOR INTRAEPITHELIAL LESION OR MALIGNANCY. Specimen Adequacy: SATISFACTORY FOR EVALUATION. Additional Findings: ENDOCERVICAL/TRANSFORMATION ZONE PRESENT. mas Electronic Signature JOSEPH Antonio (ASCP) Reported: 12/31/2013 [employer] HPV High Risk Date Ordered: 12/28/2013 Status: Signed Out Date Reported: 12/28/2013 High Risk NEGATIVE (HPV Types 16, 18, 31, 33, 35, 39, 45, 51, 52, 56, 58, 59, 66, 68) APTIMA Electronic Signature Shani Gee [place] [facility] [employer] ICD-9 Code(s) V76.2 Procedures Date CPT Code Description Status 10/13/2016 56616 Echography Transvaginal Completed 01/22/2015 44560 Obstetric Care Routine Completed 01/08/2015 17964 Biophysical Profile Without Non Stress Test Completed 01/08/2015 71214 Echography Uterus Follow-Up Or Repeat Completed 12/12/2014 91364 Injection Intramuscular Or Subcutaneous Completed 2014 35291 Echography Uterus Follow-Up Or Repeat Completed 09/19/2014 08070 Echography Uterus Complete Completed 07/23/2014 07186 Nuchal Translucency Ultrasound /First Completed Gestation 03/07/2012 Colonoscopy Completed Encounters Type Date Location Provider CPT E/M Dx Office Visit 03/11/2017 10:15a [facility] Caro Ward M.D. 26783 R30.0 N76.0 R10.2 Office Visit 01/19/2017 8:00a [facility] IRWIN Balderas 84761 Z01.419 Office Visit 10/13/2016 9:00a [facility] IRWIN [place] 74203 N76.0 N93.8 N64.59 Office Visit 06/23/2016 3:20p [facility] IRWIN [place] 76469 N92.6 Office Visit 03/09/2016 11:00a [place] [address] R10.2 Office Visit 09/24/2014 3:00p [facility] Omega Arriaga M.D. 45070 616.10 Office Visit 07/30/2014 1:20p [facility] IRWIN Balderas 91440 788.1 616.10 Office Visit 06/11/2014 11:00a [place] [address] 616.10 646.83 Office Visit 04/25/2014 8:40a [facility] IRWIN Balderas 12576 616.10 Office Visit 12/26/2013 2:30p [place] [address] V76.2 Plan of Care 03/11/2017 - Caro Ward M.D.R30.0 DysuriaComments:Urine Cx and Sens sentStart Macrobid 100bid x 7 days, pt to call Mon for Cx mhrjhdzG52.0 Acute vaginitisComments:Affirm, Cx sent, call Mon for vkhvbbrF75.2 Pelvic and perineal painComments:small skin separation. Lidocaine gel to area prn. Rec moisture barrier
[2017-03-13] MEDS ORDERED: Lidocaine 4% GEL* 10 GM TUBE TOPICAL ONE (10:44)
[2017-03-13 11:12] LABS: ABS Basophils 0 10^3/ul (0-0.2); ABS Eosinophils 0.4 10^3/ul (0-0.6); ABS Lymphocytes 1.9 10^3/ul (1.0-4.8); ABS Monocytes 0.4 10^3/ul (0-0.8); ABS Neutrophils 3.2 10^3/ul (1.5-7.7); ABS Nucleated RBC 0 10^3/ul; Eosinophil % 7.1 % (0-6); Hematocrit 38 % (35-47); Hemoglobin 12.9 g/dl (12.0-16.0); Lymphocyte % 31.7 % (25-47); Mean Corpuscular HGB Conc 34 g/dl (31-36); Mean Corpuscular Hemoglobin 30 pg (27-31); Mean Corpuscular Volume 91 fL (80-97); Mean Platelet Volume 7 um3 (7.4-10.4); Nucleated Red Blood Cells % 0; Platelet Count 262 10^3/ul (150-450); Red Blood Count 4.24 10^6/ul (4.0-5.4); Red Cell Distribution Width 14 % (10.5-15)
[2017-03-13 11:27] LABS: EGFR Non-African American 145.4 (>60)
[2017-03-13 11:49] LABS: Urine Appearance Cloudy; Urine Blood Negative (Negative); Urine Color Yellow; Urine Ketones Negative (Negative); Urine Protein Negative (Negative); Urine Specific Gravity 1.023 (1.010-1.030); Urine Urobilinogen Negative (Negative)
[2017-03-13] MEDS ORDERED: cefTRIAXone(*) 1 GM in NS 0.9% 50 ML* 50 ML IVPB ONE (12:34)
[2017-03-13] MEDS ORDERED: cefTRIAXone VIAL(*) 250 MG VIAL IM ONE (13:32)
[2017-03-13] MEDS ORDERED: Azithromycin TAB* 250 MG PO ONE (13:33)
[2017-03-13] MEDS ORDERED: DOXYcycline CAP(*) 100 MG PO ONE (13:33)
[2017-03-13] MEDS ORDERED: metroNIDAZOLE TAB* 250 MG PO ONE (13:33)
[2017-03-13] MEDS ORDERED: Lidocaine 1%* 5 ML VIAL ONE (14:04)
[2017-03-13] MEDS ORDERED: Lidocaine 1%* 5 ML VIAL INJ ONE (14:14)
--- NOTE | 2017-03-13 14:19 | ED ---
Jonnie Taylor Natalie, scribed for Trevon Canela MD on 03/13/17 at 1054 . GI/ HPI - HPI Summary HPI Summary: The pt is a 31 y/o F presenting to the ED c/o vaginal pain starting a day ago. She had a stitch in bottom left vaginal area after having a child in January 2015, and it is starting to come out. She went to OBGYN because she was having burning dysuria and urinating every 30 minutes, and she was diagnosed with a UTI. The pt was prescribed cream, but was unable to get it due to insurance. She was instructed to take Tylenol and Ibuprofen to no relief. The pt states the pain was so terrible she wanted to cry. The pain is rated 9/10. Pt additionally c/o dark urine, low back pain, vaginal discharge (transparent), chills, and mild abd pain. Pt denies hematuria. She hasnt had these symptoms before. She is sexually active without protection, but she is on control. 2 Para 1. - History of Current Complaint Chief Complaint: EDOBProblems Stated Complaint: NEEDS TO HAVE STITCHES LOOKED AT Hx Last Menstrual Period: 05/14/16 Onset/Duration: Started Days Ago, Still Present Timing: Constant Severity: Severe Current Severity: Severe Pain Intensity: 9 Additional Location for Females: Other - left vaginal wall Pain Characteristics: Burning Associated Signs and Symptoms: Positive: Back Pain, Discharge - vaginal, Dysuria , Chills, Abdominal Pain, UTI Symptoms, Other: - POSITIVE: dark urine, torn vaginal stitches. Negative: Hematuria Aggravating Factor(s): Urination Alleviating Factor(s): Nothing - Allergy/Home Medications Allergies/Adverse Reactions: Allergies Allergy/AdvReac Type Severity Reaction Status Date / Time No Known Allergies Allergy Verified 03/13/17 09:50 PMH/Surg Hx/FS Hx/Imm Hx Previously Healthy: No Endocrine/Hematology History: Denies: Hx Diabetes, Hx Thyroid Disease Cardiovascular History: Denies: Hx Hypertension Respiratory History: Denies: Hx Asthma, Hx Chronic Obstructive Pulmonary Disease (COPD) GI History: Denies: Hx Ulcer Psychiatric History: Reports: Hx Anxiety, Hx Depression Infectious Disease History: No Infectious Disease History: Denies: Hx Hepatitis, Hx Human Immunodeficiency Virus (HIV), History Other Infectious Disease, Traveled Outside the [place] in Last 30 Days - Family History Known Family History: Positive: Hypertension Negative: Cardiac Disease - Social History Alcohol Use: None Substance Use Type: Reports: None Smoking Status (MU): Never Smoked Tobacco Review of Systems Positive: Chills Eyes: Negative ENT: Negative Cardiovascular: Negative Respiratory: Negative Positive: Abdominal Pain - mild tenderness Positive: dysuria, discharge, frequency - increased. Negative: hematuria Positive: Other - low back pain Skin: Negative Neurological: Negative All Other Systems Reviewed And Are Negative: Yes Physical Exam - Summary Physical Exam Summary: Appearance: Well-appearing, Well-nourished Skin: Warm, dry Eyes: Normal, Extraocular movements in tact ENT: Normal, Mucus membranes moist Neck: Supple, nontender Respiratory: Lung sounds clear to auscultation Cardiovascular: Normal Abdomen: Soft, no distension, Mild tenderness to palpitation, No suprapubic tenderness Bowel: Present : Speculum exam: Friable external OS closed, moderate amount of whitish, slightly greenish discharge around the cervix and in the vaginal vault; Bimanual exam: minimal CMT, no adnexal tenderness bilaterally, no masses Musculoskeletal: Normal, Strength/ROM Intact, Mid CVA tenderness on right Neurological: Normal, A&Ox3 Psychiatric: Normal Triage Information Reviewed: Yes Vital Signs On Initial Exam: Initial Vitals Temp Pulse Resp BP Pulse Ox 97.0 F 73 16 107/70 100 03/13/17 09:48 03/13/17 09:48 03/13/17 09:48 03/13/17 09:48 03/13/17 09:48 Vital Signs Reviewed: Yes Diagnostics - Vital Signs Vital Signs Temp Pulse Resp BP Pulse Ox 03/13/17 09:48 97.0 F 73 16 107/70 100 - Laboratory Lab Results: Lab Results 03/13/17 03/13/17 03/13/17 Range/Units 10:45 11:00 11:00 WBC 6.0 (3.5-10.8) 10^3/ul RBC 4.24 (4.0-5.4) 10^6/ul Hgb 12.9 (12.0-16.0) g/dl Hct 38 (35-47) % MCV 91 (80-97) fL MCH 30 (27-31) pg MCHC 34 (31-36) g/dl RDW 14 (10.5-15) % Plt Count 262 (150-450) 10^3/ul MPV 7 L (7.4-10.4) um3 Neut % (Auto) 53.9 (38-83) % Lymph % (Auto) 31.7 (25-47) % [place] % (Auto) 6.5 (1-9) % Eos % (Auto) 7.1 H (0-6) % Baso % (Auto) 0.8 (0-2) % Absolute Neuts (auto) 3.2 (1.5-7.7) 10^3/ul Absolute Lymphs (auto) 1.9 (1.0-4.8) 10^3/ul Absolute Monos (auto) 0.4 (0-0.8) 10^3/ul Absolute Eos (auto) 0.4 (0-0.6) 10^3/ul Absolute Basos (auto) 0 (0-0.2) 10^3/ul Absolute Nucleated RBC 0 10^3/ul Nucleated RBC % 0 Sodium 133 (133-145) mmol/L Potassium 3.7 (3.5-5.0) mmol/L Chloride 106 (101-111) mmol/L Carbon Dioxide 23 (22-32) mmol/L Anion Gap 4 (2-11) mmol/L BUN 10 (6-24) mg/dL Creatinine 0.49 L (0.51-0.95) mg/dL Est GFR ( Amer) 187.1 (>60) Est GFR (Non-Af Amer) 145.4 (>60) BUN/Creatinine Ratio 20.4 H (8-20) Glucose 98 (70-100) mg/dL Calcium 8.7 (8.6-10.3) mg/dL Total Bilirubin 0.80 (0.2-1.0) mg/dL AST 12 L (13-39) U/L ALT 12 (7-52) U/L Alkaline Phosphatase 50 (34-104) U/L Total Protein 6.8 (6.4-8.9) g/dL Albumin 4.2 (3.2-5.2) g/dL Globulin 2.6 (2-4) g/dL Albumin/Globulin Ratio 1.6 (1-3) Beta HCG, Quant < 0.60 mIU/mL Urine Color Yellow Urine Appearance Cloudy Urine pH 5.0 (5-9) Ur Specific Terry 1.023 (1.010-1.030) Urine Protein Negative (Negative) Urine Ketones Negative (Negative) Urine Blood Negative (Negative) Urine Nitrate Negative (Negative) Urine Bilirubin Negative (Negative) Urine Urobilinogen Negative (Negative) Ur Leukocyte Esterase 3+ H (Negative) Urine WBC (Auto) Trace(0-5/hpf) (Absent) Urine RBC (Auto) Absent (Absent) Ur Squamous Epith Cells Present H (Absent) Urine Bacteria 1+ H (Absent) Urine Glucose 3+(>=500 mg/dl) H (Negative) Urine Ascorbic Acid * H (Negative) Result Diagrams: 03/13/17 11:00 03/13/17 11:00 Lab Statement: Any lab studies that have been ordered have been reviewed, and results considered in the medical decision making process. GIGU Course/Dx - Course Assessment/Plan: discharge and friable cervix seen on pelvic exam. In context of symptoms and +UA, I will proceed with treating the patient for PID with empiric antibiotics given recent unprotected sexual activity. I instructed patient to f/u with tobacco prizer, agrees to and understands dc instructions - Diagnoses Provider Diagnoses: Cervicitis, Vaginal candidiasis, UTI (urinary tract infection) Discharge - Discharge Plan Condition: Improved Disposition: HOME Prescriptions: Clotrimazole 1% VAGINAL CREAM* [Gyne-Lotrimin 1% VAGINAL CREAM*] 1 applic VAGINAL BEDTIME #1 tube DOXYcycline CAP(*) [DOXYcycline 100MG CAP(*)] 100 mg PO BID #28 cap Metronidazole [Flagyl 500 MG TAB] 500 mg PO TID #42 tab Patient Education Materials: Cervicitis (ED), Urinary Tract Infection in Women (ED), Vulvovaginal Candidiasis (ED) Referrals: Curtis Garcia MD [Primary Care Provider] - Minal Finn MD [Medical Doctor] - Additional Instructions: PLEASE MAKE AN APPOINTMENT FIRST THING IN THE MORNING TO BE SEEN BY YOUR REPLENISHER WITHIN 1 WEEK PLEASE RETURN IMMEDIATELY TO THE ER IF YOU HAVE ANY WORSENING OR CONCERNING SYMPTOMS PLEASE MAKE AN APPOINTMENT TO BE SEEN BY YOUR PRIMARY CARE DOCTOR WITHIN 1 WEEK The documentation as recorded by the Jonnie walsh Natalie accurately reflects the service I personally performed and the decisions made by me, Trevon Canela MD.
[2017-03-13 14:52] VITALS: BP 102/63
--- NOTE | 2017-03-14 09:09 | PN ---
Progress Note - Progress Note Date of Service: 03/13/17 Note: patient diagnosed with volvovaginal candidiasis and treated with clotrimizole cream. negative gardnerella no further action required.
--- NOTE | 2017-03-15 08:51 | ED ---
Progress - Progress Note Progress Note: Pt's prelim urine cx reveals e. coli 25-50,000 and klebsiella pneumonia 10-25, 000. She was started on anbx. Final sens pending. Course/Dx - Diagnoses Provider Diagnoses: Cervicitis, Vaginal candidiasis, UTI (urinary tract infection)
== END 2017-03-13 14:50 | disposition home or self-care (01) ==
LOC: ED 09:44
DX: N72 Inflammatory disease of cervix uteri (principal); B37.3 Candidiasis of vulva and vagina; N39.0 Urinary tract infection, site not specified
CPT/HCPCS: 36415; 80053; 81003; 81015; 84702; 85025; 87077; 87086; 87186; 87480; 87491; 87510; 87591; 87661; 96372; 99283; A9270-GY; J0696

== ENCOUNTER 2017-05-16 17:30 | Emergency (ER) | payer OTHER ==
[2017-05-16 17:41] VITALS: BP 117/57
--- NOTE | 2017-05-16 18:15 | UC ---
Lisa Taylor Gabriel, scribed for Kathy Perez MD on 05/16/17 at 1812 . Throat Pain/Nasal Vijay HPI - HPI Summary HPI Summary: This patient is a 31 year old F presenting to [facility] with a chief complaint of a sore throat since 05-14-17. The patient rates the pain 9/10 in severity. Symptoms alleviated by nothing. Patient reports ear ache L>R, cough, chills, GOLDEN , hoarse voice, rhinorrhea, and decreased PO intake. Took ibuprofen and Mucinex at 1400. 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 Daughter with PNA. Painful swallowing. no drooling. No rash. No cough, sob, cp. Patients medication reviewed during this visit. - History of Current Complaint Chief Complaint: UCRespiratory Stated Complaint: SORE THROAT, EAR PAIN Time Seen by Provider: 05/16/17 17:44 Hx Obtained From: Patient Hx Last Menstrual Period: [id number] Onset/Duration: Lasting Days, Still Present Severity: Severe Pain Intensity: 9 Pain Scale Used: 0-10 Numeric Associated Signs & Symptoms: Positive: Hoarseness, Other - ear ache, cough, chills, GOLDEN, hoarse voice, decreased PO intake, - Allergies/Home Medications Allergies/Adverse Reactions: Allergies Allergy/AdvReac Type Severity Reaction Status Date / Time No Known Allergies Allergy Verified 05/16/17 17:41 PMH/Surg Hx/FS Hx/Imm Hx - Additional Past Medical History Additional PMH: Glaucoma Previously Healthy: Yes - glaucoma - Surgical History Surgical History: None - Family History Known Family History: Positive: Hypertension, Diabetes Negative: Cardiac Disease - Social History Occupation: Employed Full-time Lives: With Family Alcohol Use: Rare Substance Use Type: None Smoking Status (MU): Never Smoked Tobacco - Immunization History Most Recent Influenza Vaccination: 01/08/15 Most Recent Tetanus Shot: 12/12/14 Most Recent Pneumonia Vaccination: unknown Review of Systems Constitutional: Chills, Other - decreased PO intake ENT: Sore Throat, Ear Ache, Nasal Discharge, Other - hoarse voice Respiratory: Cough Neurological: Headache All Other Systems Reviewed And Are Negative: Yes Physical Exam Triage Information Reviewed: Yes Appearance: Well-Appearing, No Pain Distress, Well-Nourished Vital Signs: Initial Vital Signs Temp 97.0 F 05/16/17 17:35 Pulse 84 03/12/18 17:35 Resp 18 05/16/17 17:35 BP 117/57 05/16/17 17:35 Pulse Ox 100 05/16/17 17:35 Vital Signs Reviewed: Yes Eye Exam: Normal Eyes: Positive: Conjunctiva Clear ENT: Positive: Other - fluid b/l TM L>>R right, + bulging turbinates inflammed and boggy + PND uvula midline no exudate, no erythema oropharynx pt speaks with whisper, painful swallowing Dental Exam: Normal Neck exam: Normal Neck: Positive: Supple, Nontender, No Lymphadenopathy Respiratory Exam: Normal Respiratory: Positive: Chest non-tender, Lungs clear, Normal breath sounds, No respiratory distress, No accessory muscle use Cardiovascular Exam: Normal Cardiovascular: Positive: RRR Abdominal Exam: Normal Abdomen Description: Positive: Nontender, No Organomegaly, Soft Musculoskeletal Exam: Normal Musculoskeletal: Positive: Strength Intact Neurological Exam: Normal Neurological: Positive: Alert Psychological Exam: Normal Skin Exam: Normal Throat Pain/Nasal Course/Dx - Course Course Of Treatment: pt with sore throat, progressive ear pain and congestion. painful swallowing. no drooling. Pt with left OM on exam and inflamemd turbinates. Rx Amox. flonase. cold fluid. hydrate. work note. Pt reports gets yeast infections - Rx diflucan as needed. secretion precautions - Differential Dx/Diagnosis Provider Diagnoses: left otitis media. URI Discharge - Discharge Plan Condition: Stable Disposition: HOME Prescriptions: Amoxicillin PO (*) [Amoxicillin 875 MG (*)] 875 mg PO BID #14 tab Fluconazole [Diflucan 150 MG (NF)] 150 mg PO ONCE PRN #1 tab PRN Reason: yeast infection Fluticasone NASAL SPRAY 50MCG* [Flonase NASAL SPRAY 50MCG*] 2 spray BOTH NARES DAILY #1 btl Patient Education Materials: Ear Infection (ED) Forms: *Work Release Referrals: Curtis Garcia MD [Primary Care Provider] - Additional Instructions: - Stay well hydrated. Drink plenty of non-alcoholic, non-caffinated beverages. - Alternate ibuprofen (Advil, Motrin) 600mg and Tylenol every 3 hours for pain or fever. Take with food. Do NOT take for more than 4-5 days. -cold foods (popsicle, jello, apple sauce) may be soothing to your throat - okay to gargle and spit with warm salt water, 2-3 times a day - These infections are spread by secretions - do NOT share eating or drinking utensils - clean items you share with other people such as cell phones, computer mouse, TV remote, computer tablets, etc. After you have taken Amoxicillin for 3 days, change your toothbrush and your pillowcase. - use nasal spray as prescribed - get plenty of restful sleep - humidify the air in the room where you sleep - boil water, run a hot steam shower, vaporizer, cups of water by heat register - you have been given a prescription for diflucan - okay to take if needed for yeast infection related to antibiotics - contact your doctor, return here, or go to the emergency department with questions or concerns The documentation as recorded by the Lisa walsh Gabriel accurately reflects the service I personally performed and the decisions made by me, Kathy Perez MD.
== END 2017-05-16 18:30 | disposition home or self-care (01) ==
LOC: UCEAST 17:30
DX: H66.92 Otitis media, unspecified, left ear (principal); J06.9 Acute upper respiratory infection, unspecified; H40.9 Unspecified glaucoma
CPT/HCPCS: 87651; 99212; G0463

== ENCOUNTER 2018-11-19 09:46 | Emergency (ER) | payer MEDICAID ==
--- OUTSIDE RECORDS SUMMARY | 2018-11-19 09:59 | XMS REPORT | Continuity of Care Document ---
:1985 External Reference #:[id number] Author Name Vazquez Tinoco M.D. Address [address] [place] [address] Care Team Providers Name Role Phone Dylan Alanis M.D. - Care Team Information Gift Basket Packer [phone] Ophthalmology Tiffanie Pineda MD - Internal Medicine Care Team Information Gift Basket Packer [phone] Problems Active Problems Provider Date Migraine Onset: Primary open angle glaucoma Deandra High O.D. Onset: 11/05/2014 Moderate Glaucoma Deandra High O.D. Onset: 11/05/2014 Mild / Early Stage Glaucoma Deandra High O.D. Onset: 11/26/2014 Facial nerve disorder Deandra High O.D. Onset: 12/16/2014 Presbyopia Deandra High O.D. Onset: 12/16/2014 Vitreous degeneration Deandra High O.D. Onset: 12/16/2014 Tear film insufficiency Idalmis Myers O.D. Onset: 10/02/2015 Bilateral primary open angle glaucoma Vazquez Tinoco M.D. Onset: 2015 Chronic sinusitis Gen Mckeon M.D. Onset: 02/19/2016 Headache Deandra High O.D. Onset: 03/05/2016 Internal hordeolum Deandra High O.D. Onset: 03/05/2016 Bilateral primary open angle glaucoma Gen Mckeon M.D. Onset: 04/15/2016 Superficial punctate keratitis Deandra High O.D. Onset: 03/31/2017 Onset: Note: 3 MONTHS 11/16/18 Social History Type Date Description Comments Sex Unknown ETOH Use Denies alcohol use Tobacco Use Start: Unknown Patient has never smoked Recreational Drug Use Denies Drug Use Smoking Status Reviewed: 11/16/18 Patient has never smoked Allergies, Adverse Reactions, Alerts Description No Known Drug Allergies Medications Active Medications SIG Qnty Indications Ordering Provider Date Restasis 1 drops both 180units Deandra High, 08/30/2017 0.05% Emulsion eyes twice a O.D. day Refresh Tears as needed Idalmis Chris 05/20/2015 0.5% [place], O.D. Solution Vitamin D Unknown (Cholecalciferol) Immunizations Description No Information Available Vital Signs Date Vital Result Comment 06/05/2015 3:33pm BP Systolic 100 mmHg BP Diastolic 67 mmHg Heart Rate 76 /min Respiratory Rate 12 /min 06/02/2015 3:22pm BP Systolic 103 mmHg BP Diastolic 68 mmHg Heart Rate 75 /min Respiratory Rate 16 /min Results Description No Information Available Procedures Description No Information Available Medical Devices Description No Information Available Encounters Description No Information Available Assessments Date Code Description Provider 11/16/2018 H40.1132 Primary open-angle glaucoma, bilateral, Vazquez Tinoco M.D. moderate stage Plan of Treatment 11/16/2018 - Vazquez Tinoco M.D.H40.1132 Primary open-angle glaucoma, bilateral, moderate stageComments:Smoking can increase the risk of developing or worsening any eye related disease, as well as affect your overall health. If you are a smoker, we strongly recommend that you quit.If you are not a smoker , we strongly recommend that you do not start. Your glaucoma is stable at this time.Your eye pressure is within an acceptable range, and your testing does not show any further deterioration at this time. Please continue your treatment. Your eyes responded well to the laser treatment. Your eye pressure in both eyes is within the target range without adding additional medication. We will continue to monitor your eye pressure. KEEP ALL SCHEDULED APPOINTMENTS WITH DR. Hoang up:6 Week Follow Up IOP CHECK At your next visit, we are not planning to dilate your eyes. However, ifyou have any changes in your vision or new symptoms, there are certain situations that require us todilate your eyes. If Dr. Tinoco requests any additional testing, that may require extra time. If you have any questions before your next appointment, please call our office at . Functional Status Description No Information Available Mental Status Description No Information Available Referrals Description No Information Available
--- OUTSIDE RECORDS SUMMARY | 2018-11-19 09:59 | XMS REPORT | Continuity of Care Document ---
:1985 External Reference #:[id number] Author Name Dylan Niño III, MD Address [address] [place] [id number] Care Team Providers Name Role Phone Gen Mckeon MD - Ophthalmology Care Team Information Adding Machine Operator Tiffanie Pineda MD - Family Medicine Care Team Information Adding Machine Operator [phone] Problems Active Problems Provider Date Primary open angle glaucoma Dago Joe MD Onset: 05/29/2018 Social History Type Date Description Comments Sex Unknown ETOH Use Never used alcohol Tobacco Use Start: Unknown Patient has never smoked Recreational Drug Use Never Used Drugs Smoking Status Reviewed: 11/13/18 Patient has never smoked Allergies, Adverse Reactions, Alerts Description No Known Drug Allergies Medications Active Medications SIG Qnty Indications Ordering Provider Date Sumatriptan Succinate Take By Mouth as Unknown Directed AT Onset 100mg Tablets Of Headache, And May Repeat After 2 Vitamin D Unknown (Ergocalciferol) [id number] Capsules Immunizations Description No Information Available Vital Signs Date Vital Result Comment 11/13/2018 1:13pm Intraocular Pressure Right Eye 22 mmHg Ap 01:13 PM Intraocular Pressure Left Eye 19 mmHg Ap 01:13 PM 04/04/2018 11:42am Intraocular Pressure Right Eye 15 mmHg Ap Intraocular Pressure Left Eye 17 mmHg Ap 11:42 Am Results Description No Information Available Procedures Date Code Description Status 11/13/2018 81900 Gonioscopy W/Med Diag Eval Completed 11/13/2018 30767 Exam, Comprehensive, Est PT Completed Medical Devices Description No Information Available Encounters Description No Information Available Assessments Date Code Description Provider 11/13/2018 H40.1122 Primary open-angle glaucoma, left Dylan Niño III, MD eye, moderate stage 11/13/2018 H40.1111 Primary open-angle glaucoma, right Dylan Perales Renay HERNANDEZ MD eye, mild stage Plan of Treatment 11/13/2018 - Dylan Perales Renay HERNANDEZ MDH40.1122 Primary open-angle glaucoma, left eye, moderate stageComments:The patient's treatment plan was discussed at length today. The patient has vision threatening visual changes, including increasing IOP levels and visual field changes. It was explained to the patient that there has already been vision loss and that drop therapy is not enough to treat their particular case of glaucoma. Laser treatment and surgical intervention were discussed as treatment options.The patient has elected to have SLT treatment to help increase aqueous outflow and decrease IOP. The risks, benefits and alternatives to SLT in the left eye were discussed , including, but not limited to increased IOP, inflammation and loss of vision. The patient was given the opportunity to ask questions and those questions were answered. Patient would like to proceed with SLT today both eye.Follow up: Iop s/p SLT OU in 2-3wks with AewpmQ06.1111 Primary open-angle glaucoma, right eye, mild stage Functional Status Description No Information Available Mental Status Description No Information Available Referrals Description No Information Available
[2018-11-19] MEDS ORDERED: PROCHLORPERAZINE INJ 5 MG/ML 2 ML VIAL IV PRN (10:35)
[2018-11-19] MEDS ORDERED: NS 0.9% 1000 ML** 1,000 ML IV.FLUID IV ONE (10:44)
[2018-11-19 10:45] LABS: ABS Basophils 0.1 10^3/ul (0-0.2); ABS Eosinophils 0.3 10^3/ul (0-0.6); ABS Lymphocytes 1.9 10^3/ul (1.0-4.8); ABS Monocytes 0.7 10^3/ul (0-0.8); ABS Neutrophils 5.2 10^3/ul (1.5-7.7); Eosinophil % 3.3 %; Hematocrit 41 % (35-47); Hemoglobin 13.8 g/dL (12.0-16.0); Lymphocyte % 23.7 %; Mean Corpuscular HGB Conc 34 g/dL (31-36); Mean Corpuscular Hemoglobin 31 pg (27-31); Mean Corpuscular Volume 90 fL (80-97); Mean Platelet Volume 6.5 fL (7.4-10.4); Nucleated Red Blood Cells % 0.1; Platelet Count 321 10^3/uL (150-450); Red Cell Distribution Width 13 % (10-15); White Blood Count 8.2 10^3/uL (3.5-10.8)
--- NOTE | 2018-11-19 10:45 | ED ---
Abdominal Pain/Female - HPI Summary HPI Summary: This patient is a 32 year old F presenting to [facility] with a chief complaint of soreness in lower abdominal since 11/18/18. Pt is . Her last period was on 08/12/18; however because her period is irregular she did not find out she was until 11/13/18. Pt has glaucoma, and takes drops for it. However the eye drops are not good for the child, so after finding out she was she went to eye doctor in [place] (on 11/13/18) and got laser treatment for the pressure. Then for the past 5-6 days pt has been nauseas and vomiting a green acidic substance. Finally on 11/18/18 pt began to have lower abdominal pain radiating to lower right back. Per triage, the patient rates the pain 6/10 in severity. Today, morning there was a spot of blood in her underwear; she told her information technology security manager and was told to come to the ED. A1 - History of Current Complaint Chief Complaint: EDOBProblems Stated Complaint: LOW ABD PAIN AND CRAMPING PER PT Time Seen by Provider: 11/19/18 10:27 Hx Obtained From: Patient Hx Last Menstrual Period: 08/12/18 ?: Yes Onset/Duration: Lasting Days, Still Present Timing: Constant Severity Initially: Moderate Severity Currently: Moderate Pain Intensity: 6 Pain Scale Used: 0-10 Numeric Location: Suprapubic Radiates: Yes Radiates to: Back Character: Other: - Sore Aggravating Factor(s): Nothing Alleviating Factor(s): Nothing Associated Signs and Symptoms: Positive: Back Pain, Vaginal Bleeding, Nausea, Vomiting Allergies/Adverse Reactions: Allergies Allergy/AdvReac Type Severity Reaction Status Date / Time No Known Allergies Allergy Verified 11/19/18 09:52 PMH/Surg Hx/FS Hx/Imm Hx Endocrine/Hematology History: Denies: Hx Diabetes, Hx Thyroid Disease Cardiovascular History: Denies: Hx Hypertension Respiratory History: Denies: Hx Asthma, Hx Chronic Obstructive Pulmonary Disease (COPD) GI History: Denies: Hx Ulcer Sensory History: Reports: Hx Glaucoma Psychiatric History: Reports: Hx Anxiety, Hx Depression - Cancer History Hx Chemotherapy: No Hx Radiation Therapy: No Infectious Disease History: No Infectious Disease History: Denies: Hx Hepatitis, Hx Human Immunodeficiency Virus (HIV), History Other Infectious Disease, Traveled Outside the [place] in Last 30 Days - Family History Known Family History: Positive: Hypertension, Diabetes Negative: Cardiac Disease - Social History Occupation: Employed Full-time Lives: With Family Alcohol Use: Rare Substance Use Type: Reports: None Smoking Status (MU): Never Smoked Tobacco Review of Systems Positive: Abdominal Pain, Vomiting, Nausea Positive: other - vaginal bleeding Positive: Other - lower back pain All Other Systems Reviewed And Are Negative: Yes Physical Exam - Summary Physical Exam Summary: Appearance: The patient is well-nourished in no distress and in no acute pain. Skin: The skin is warm and dry, and skin color reflects adequate perfusion. HEENT: The head is normocephalic and atraumatic. The pupils are equal and reactive. The conjunctivae are clear and without drainage. Nares are patent and without drainage. Mouth reveals moist mucous membranes, and the throat is without erythema and exudate. The external ears are intact. The ear canals are patent and without drainage. The tympanic membranes are intact. Neck: The neck is supple with full range of motion and non-tender. There are no carotid bruits. There is no neck vein distension. Respiratory: Chest is non-tender. Lungs are clear to auscultation and breath sounds are symmetrical and equal. Cardiovascular: Heart is regular rate and rhythm. There is no murmur or rub auscultated. There is no peripheral edema and pulses are symmetrical and equal. Abdomen: There are normal bowel sounds heard in all four quadrants and there is no organomegaly palpated. Tender in suprapubic area. Musculoskeletal: There is no back tenderness noted. Extremities are non-tender with full range of motion. There is good capillary refill. There is no peripheral edema or calf tenderness elicited. Neurological: Patient is alert and oriented to person, place and time. The patient has symmetrical motor strength in all four extremities. Cranial nerves are grossly intact. Deep tendon reflexes are symmetrical and equal in all four extremities. Psychiatric: The patient has an appropriate affect and does not exhibit any anxiety or depression. Triage Information Reviewed: Yes Vital Signs On Initial Exam: Initial Vitals Temp Pulse Resp BP Pulse Ox 98.1 F 90 16 129/88 100 11/19/18 09:49 11/19/18 09:49 11/19/18 09:49 11/19/18 09:49 11/19/18 09:49 Vital Signs Reviewed: Yes Diagnostics - Vital Signs Vital Signs Temp Pulse Resp BP Pulse Ox 11/19/18 09:49 98.1 F 90 16 129/88 100 - Laboratory Result Diagrams: 11/19/18 10:37 11/19/18 10:37 Lab Statement: Any lab studies that have been ordered have been reviewed, and results considered in the medical decision making process. - Ultrasound US Ultrasound Interpretation Completed By: Radiologist Summary of Ultrasound Findings: US reveals, per radiologist, IMPRESSION: #. Solitary IUP with normal range cardiac activity. AUA 17 weeks 4 days. AUA IGNACIO July 04, 2019. Significant perigestational hemorrhage is noted. #. Small hemorrhagic cyst or corpus luteum at the LEFT ovary. ED physician has reviewed this radiology report. Re-Evaluation - Re-Evaluation First Eval Re-Evaluation Time: 12:37 Comment: Spoke to pt about recieving an US Second Eval Re-Evaluation Time: 13:42 Comment: Discussed plan of care with pt. Abdominal Pain Fem Course/Dx - Course Course Of Treatment: Ms. Mckeon presented about 3 months late for her period. She took a home test about a week ago and was positive. She went to her eye doctor as she is diagnosis of glaucoma who stopped her medication and did some sort of laser procedure. She complains of about a week of nausea, no eye pain and some intermittent lower abdominal pain. This morning she saw some spotting became concerned and came in. She was tender in the suprapubic area. She was nontoxic with stable vital signs. Labs were obtained and generally good. HCG was quite high at 76,000 Rh+. Transvaginal ultrasound was obtained and showed a 17 week IUP that is viable. She was given Compazine here in the emergency department as well as IV fluids and felt significantly improved. I don't think that her nausea and vomiting are related to her eyes. I'm going to treat her with B6 and doxylamine with close COLLECTION SUPPORT SPECIALIST follow-up. - Diagnoses Provider Diagnoses: Threatened miscarriage, Nausea and vomiting during Discharge ED - Sign-Out/Discharge Documenting (check all that apply): Patient Departure - Discharge Patient Received Moderate/Deep Sedation with Procedure: No - Discharge Plan Condition: Stable Disposition: HOME Prescriptions: Doxylamine Succinate/Vit B6 [Doxylamine-Pyridoxine 10-10 mg] 2 each PO BEDTIME # 20 tablet. Patient Education Materials: Threatened Miscarriage (ED), Nausea and Vomiting in (ED) Forms: *Work Release Referrals: Tiffanie Pineda MD [Primary Care Provider] - Minal Finn MD [Medical Doctor] - 3 Days Additional Instructions: Follow up with OBGYN in 2-3 days. RETURN TO THE ED FOR ANY NEW OR WORSENING SYMPTOMS. - Billing Disposition and Condition Condition: STABLE Disposition: Home - Attestation Statements Document Initiated by Melvinibe: Yes Documenting Scribe: Fina Espinosa Provider For Whom Scribe is Documenting (Include Credential): Micheal Johnson MD Scribe Attestation: Fina Taylor, melvinibed for Micheal Johnson MD on 11/19/18 at 1628. Scribe Documentation Reviewed: Yes Provider Attestation: The documentation as recorded by the Fina walsh accurately reflects the service I personally performed and the decisions made by me, Micheal Johnson MD Status of Scribe Document: Viewed
[2018-11-19 11:01] LABS: Albumin 4.3 g/dL (3.2-5.2); Albumin/Globulin Ratio 1.7 (1-3); Calcium 9.2 mg/dL (8.6-10.3); EGFR African American 170.9 (>60); EGFR Non-African American 141.2 (>60); Globulin 2.6 g/dL (2-4); Potassium 3.4 mmol/L (3.5-5.0); Total Bilirubin 0.7 mg/dL (0.2-1.0); Total Protein 6.9 g/dL (6.4-8.9)
[2018-11-19 14:04] VITALS: BP 126/84
== END 2018-11-19 14:02 | disposition home or self-care (01) ==
LOC: ED 09:46
DX: O20.0 Threatened abortion (principal); O21.0 Mild hyperemesis gravidarum; Z3A.17 17 weeks gestation of pregnancy
CPT/HCPCS: 36415; 76801; 80053; 83605; 84702; 85025; 86850; 86900; 86901; 96361; 96374; 99282; J0780

== ENCOUNTER 2019-01-03 11:35 | Emergency (ER) | payer MEDICAID ==
--- OUTSIDE RECORDS SUMMARY | 2019-01-03 11:47 | XMS REPORT | Continuity of Care Document ---
:1985 External Reference #:[id number] Author Name Soo Kim CNM Address [address], [place] [address] Problems Description No Active Problems Social History Type Date Description Comments Sex Unknown Tobacco Use Start: Unknown Never Smoked Cigarettes ETOH Use Denies alcohol use Recreational Drug Use Denies Drug Use Tobacco Use Start: Unknown Patient has never smoked Smoking Status Reviewed: 11/20/18 Patient has never smoked Exercise Type/Frequency Exercises rarely Seat Belt/Car Seat Always uses seat belt IGNACIO: 02/02/2015 Estimated Date of Based on 1st Delivery Ultrasound Allergies, Adverse Reactions, Alerts Description No Known Drug Allergies Medications Active Medications SIG Qnty Indications Ordering Date Provider Diclegis take 2 tabs qhs. 100tabs Marianne Millan, 11/24/2018 10-10mg if symptoms CNM Tablets DR persist, add 1 tab qam starting day 3. if symptoms persist, add 1 tab q afternoon starting day4 Clotrimazole-7 5grams per vaginal 40G Soo Gao 11/23/2018 1% every night at SILVER Kim Cream bedtime x 7 days Cephalexin 1 by mouth twice a 14tabs Christiana 11/20/2018 500mg day for 7 days MD Augustus Tablets Ibuprofen take one tab by 30tabs Minal Finn, 01/25/2015 600mg mouth every 6 MD Tablets hours as needed for pain Vitamin D Unknown (Cholecalciferol) 1 by mouth every Unknown Tablets day History Medications Doxylamine take 2 tablets at 90tabs Soo Gao 11/21/2018 - Succinate/Pyridoxine bedtime; if SILVER Kim 11/24/2018 Hydrochloride symtpoms persist 10-10mg Tablets DR after 72 hours, take an additional tablet in the morning and afternoon Medications Administered in Office Medication SIG Qnty Indications Ordering Provider Date PT SCRN Tbco Id as Non User Minal Finn MD 08/23/2017 Injection PT SCRN Tbco Id as Non User Minal Finn MD 07/19/2017 Injection PT SCRN Tbco Id as Non User IRWIN Baledras 03/21/2017 Injection Immunizations CPT Code Status Date Vaccine Lot # [id number] Given 01/08/2015 Influenza Virus Vaccine Split Virus Use For [id number] Individual 3Yr Older 82827 Given 12/12/2014 Tetnus, Diptheria Toxoids And Acellular Pertussis, [id number] PT > 7Yrs Old Vital Signs Date Vital Result Comment 11/20/2018 3:38pm BP Systolic 122 mmHg BP Diastolic 80 mmHg Height 63.5 inches 5'3.50" Weight 149.00 lb BMI (Body Mass Index) 26.0 kg/m2 Last Menstrual Period 4991166 3 Parity 1 08/23/2017 1:09pm BP Systolic 104 mmHg BP Diastolic 70 mmHg Height 64 inches 5'4" Weight 138.00 lb BMI (Body Mass Index) 23.7 kg/m2 Last Menstrual Period 7393011 2 Parity 1 Results Test Date Facility Test Result H/L Range Note Urine Culture And 11/20/2018 [facility] Urine Culture SEE RESULT [address] [place] [address] BELOW [phone] 1 SEE RESULT BELOW Name: JOSE ANDERSON : [address]: Christiana Coffman MD Acct: [id number] Unit: [id number] AGE: 32 Location: [facility] Re11/20/18 SEX: F Status: REG REF SPEC: [id number] CASSANDRA: 11/20/18-15[address] [facility] [address]: Christiana Coffman MD REQ: [id number] RECD: 11/21/18124 STATUS: COMP _ SOURCE: URINE SPDESC: ORDERED: Urine Culture COMMENTS: [id number] Procedure Result Reported Site Urine Culture Final 11/22/18- 1531 ML No growth of clinically significant organisms * ML - Main Lab . END OF REPORT DEPARTMENT OF PATHOLOGY, [address] [place] [address] Reji Garcia M.D. Director [facility] # [id number] Procedures Date Code Description Status 03/07/2012 14473278 Colonoscopy Completed Medical Devices Description No Information Available Encounters Type Date Location Provider Dx Diagnosis Office Visit 11/20/2018 [facility] Christiana Coffman, N39.0 Urinary tract 3:30p MD infection, site not specified Assessments Date Code Description Provider 11/20/2018 N39.0 Urinary tract infection, site not specified Christiana Coffman MD Plan of Treatment Future Appointment(s):11/28/2018 8:30 am - Soo Kim CNM at [facility]12/12/2018 2:30 pm - Kathy Solomon CNM at [facility]03/21/2017 - REINALDO Balderas-CN76.0 Acute vaginitisNew Medication:Nystatin-Triamcinolone 597163-4.1 Unit/GM-% - apply three times a day to vulva x 5 days and as neededFollow up:Follow up PRNN92.6 Irregular menstruation, unspecifiedComments:r /v if menses lasting more than 11 days , " home urine test negative" on OC's Functional Status Functional Condition Comment Date Status Glasses Active Mental Status Description No Information Available Referrals Description No Information Available
--- OUTSIDE RECORDS SUMMARY | 2019-01-03 11:47 | XMS REPORT | Continuity of Care Document ---
:1985 External Reference #:[id number] Author Name Elham Brewer Care Team Providers Name Role Phone Curtis Garcia MD Care Team Information Right Of Way Clearer [phone] Problems Description No Active Problems Social History [...] Medications SIG Qnty Indications Ordering Provider Date Ibuprofen take one tab by 30tabs Minal Finn MD 01/25/2015 600mg Tablets mouth every 6 hours as needed for pain Vitamin D Unknown (Cholecalciferol) 1 by mouth every Unknown Tablets day Medications Administered in Office Medication SIG Qnty Indications Ordering Provider Date PT SCRN Tbco Id as Non User Minal Finn MD 08/23/2017 Injection PT SCRN Tbco Id as Non User Minal Finn MD 07/19/2017 Injection PT SCRN Tbco Id as Non User IRWIN Balderas 03/21/2017 Injection Immunizations CPT Code Status Date Vaccine Lot # [id number] Given 01/08/2015 Influenza Virus Vaccine Split Virus Use For [id number] Individual 3Yr Older 20800 Given 12/12/2014 Tetnus, Diptheria Toxoids And Acellular Pertussis, [id number] PT > 7Yrs Old Vital Signs Date Vital Result Comment 11/20/2018 3:38pm BP Systolic 122 mmHg BP Diastolic 80 mmHg Height 63.5 inches 5'3.50" Weight 149.00 lb BMI (Body Mass Index) 26.0 kg/m2 Last Menstrual Period 7113184 3 Parity 1 08/23/2017 1:09pm BP Systolic 104 mmHg BP Diastolic 70 mmHg Height 64 inches 5'4" Weight 138.00 lb BMI (Body Mass Index) 23.7 kg/m2 Last Menstrual Period 9352990 2 Parity 1 Results Description No Information Available Procedures Date Code Description Status 03/07/2012 [id number] Colonoscopy Completed Medical Devices Description No Information Available Encounters Description No Information Available Assessments Description No Information Available Plan of Treatment Future Appointment(s):11/28/2018 8:15 am - Soo Kim CNM at [facility]12/12/2018 2:30 pm - Kathy Solomon CNM at [facility]03/21/2017 - REINALDO Balderas-CN76.0 Acute vaginitisNew Medication:Nystatin-Triamcinolone 831270-9.1 Unit/GM-% - apply three times a day [...]
[2019-01-03 11:58] LABS: ABS Eosinophils 0.1 10^3/ul (0-0.6); ABS Lymphocytes 1.3 10^3/ul (1.0-4.8); ABS Neutrophils 7.7 10^3/ul (1.5-7.7); Eosinophil % 1.1 %; Hematocrit 38 % (35-47); Lymphocyte % 12.6 %; Mean Corpuscular HGB Conc 34 g/dL (31-36); Mean Corpuscular Hemoglobin 31 pg (27-31); Mean Corpuscular Volume 89 fL (80-97); Mean Platelet Volume 6.6 fL (7.4-10.4); Platelet Count 287 10^3/uL (150-450); Red Blood Count 4.24 10^6 /uL (3.70-4.87); Red Cell Distribution Width 13 % (10-15); White Blood Count 10.1 10^3/uL (3.5-10.8)
[2019-01-03 12:05] LABS: INR 0.99 (0.82-1.09)
[2019-01-03 12:23] LABS: Albumin/Globulin Ratio 1.3 (1-3); BUN/Creatinine Ratio 13.6 (8-20); Calcium 9.7 mg/dL (8.6-10.3); EGFR African American 196.9 (>60); EGFR Non-African American 162.7 (>60); Potassium 3.7 mmol/L (3.5-5.0); Total Bilirubin 0.4 mg/dL (0.2-1.0)
--- NOTE | 2019-01-03 14:24 | ED ---
HPI Chest Pain - HPI Summary HPI Summary: Pt is a 33 y/o F presenting to the ED with a chief complaint of chest pain. Notably, pt is approximately 4mos 2wks . Pt states her daughter is sick and a couple of days ago she thought she may have been catching a cold characterized by a cough and congestion. She woke up this morning short of breath and with the current CP that radiates to her back. Pain is worse when she coughs. No exertional CP or PEREZ. She also notes weakness and fatigue. She denies diarrhea, vomiting, vaginal bleeding or loss of fluids. She was here recently for threatened miscarriage. Denies hx DVT/PE, CT, CHF. - History of Current Complaint Chief Complaint: EDChestPainROMI Time Seen by Provider: 01/03/19 13:46 Hx Obtained From: Patient Hx Last Menstrual Period: 08/12/18 Onset/Duration: Started Hours Ago, Still Present Timing: Constant, Lasting Hours Initial Severity: Moderate Current Severity: Severe Pain Intensity: 8 Pain Scale Used: 0-10 Numeric Chest Pain Location: Diffuse Chest Pain Radiates: Yes Chest Pain Radiates To:: Back Aggravating Factor(s): Nothing Alleviating Factor(s): Nothing Associated Signs and Symptoms: Positive: Chest Pain, Weakness, Shortness of Breath, Cough, Nasal Congestion - Allergy/Home Medications Allergies/Adverse Reactions: Allergies Allergy/AdvReac Type Severity Reaction Status Date / Time No Known Allergies Allergy Verified 01/03/19 14:01 Home Medications: Home Medications Doxylamine/Pyridoxine(NF) [Diclegis (NF)] 1 tab PO BID 01/03/19 [History Confirmed 01/03/19] Doxylamine/Pyridoxine(NF) [Diclegis (NF)] 2 tab PO BEDTIME 01/03/19 [History Confirmed 01/03/19] Metoclopramide TAB* [Reglan TAB*] 10 mg PO Q8HR 01/03/19 [History Confirmed ] Multivitamins/Minerals TAB* [Theragran/minerals TAB*] 1 tab PO DAILY 01/03/19 [ History Confirmed 01/03/19] Auo779/Iron Fum/Folic/Docusate [ 19] 1 tab PO DAILY 01/03/19 [History Confirmed 01/03/19] PMH/Surg Hx/FS Hx/Imm Hx Previously Healthy: Yes Endocrine/Hematology History: Denies: Hx Diabetes, Hx Thyroid Disease Cardiovascular History: Denies: Hx Hypertension Respiratory History: Denies: Hx Asthma, Hx Chronic Obstructive Pulmonary Disease (COPD) GI History: Denies: Hx Ulcer Sensory History: Reports: Hx Glaucoma Opthamlomology History: Reports: Hx Glaucoma Psychiatric History: Reports: Hx Anxiety, Hx Depression - Cancer History Hx Chemotherapy: No Hx Radiation Therapy: No Infectious Disease History: No Infectious Disease History: Denies: Hx Hepatitis, Hx Human Immunodeficiency Virus (HIV), History Other Infectious Disease, Traveled Outside the [place] in Last 30 Days - Family History Known Family History: Positive: Hypertension, Diabetes Negative: Cardiac Disease - Social History Alcohol Use: None Hx Substance Use: No Substance Use Type: Reports: None Hx Tobacco Use: No Smoking Status (MU): Never Smoked Tobacco Review of Systems Positive: Fatigue Positive: Chest Pain Positive: Shortness Of Breath, Cough Negative: Diarrhea Positive: Weakness All Other Systems Reviewed And Are Negative: Yes Physical Exam - Summary Physical Exam Summary: Constitutional: Well-developed, Well-nourished, Alert. (-) Distressed Skin: Warm, Dry HENT: Normocephalic; Atraumatic. Congestion Eyes: Conjunctiva normal Neck: Musculoskeletal ROM normal neck. (-) JVD, (-) Stridor, (-) Nuchal rigidity Cardio: Rhythm regular, tachycardic. Heart sounds normal; Intact distal pulses ; Radial pulses are 2+ and symmetric. (-) Murmur Pulmonary/Chest wall: Dry cough. Effort normal. (-) Respiratory distress, (-) Wheezes, (-) Rales Abd: Soft, (-) tenderness, (-) Distension, (-) Guarding, (-) Rebound. +gravid uterus. Musculoskeletal: (-) Edema Lymph: (-) Cervical adenopathy Neuro: Alert, Oriented x3 Psych: Mood and affect Normal Triage Information Reviewed: Yes Vital Signs On Initial Exam: Initial Vitals Temp Pulse Resp BP Pulse Ox 98.6 F 103 18 134/68 100 01/03/19 11:38 01/03/19 11:38 01/03/19 11:38 01/03/19 11:38 01/03/19 11:38 Vital Signs Reviewed: Yes Procedures - Sedation Patient Received Moderate/Deep Sedation with Procedure: No Diagnostics - Vital Signs Vital Signs Temp Pulse Resp BP Pulse Ox 01/03/19 13:20 99.5 F 102 16 118/70 9 01/03/19 11:38 98.6 F 103 18 134/68 100 - Laboratory Lab Results: Lab Results 01/03/19 01/03/19 01/03/19 Range/Units 11:48 11:48 11:48 WBC 10.1 (3.5-10.8) 10^3/uL RBC 4.24 (3.70-4.87) 10^6 /uL Hgb 13.0 (12.0-16.0) g/dL Hct 38 (35-47) % MCV 89 (80-97) fL MCH 31 (27-31) pg MCHC 34 (31-36) g/dL RDW 13 (10-15) % Plt Count 287 (150-450) 10^3/uL MPV 6.6 L (7.4-10.4) fL Neut % (Auto) 76.4 % Lymph % (Auto) 12.6 % Nicholas % (Auto) 9.5 % Eos % (Auto) 1.1 % Baso % (Auto) 0.4 % Absolute Neuts (auto) 7.7 (1.5-7.7) 10^3/ul Absolute Lymphs (auto) 1.3 (1.0-4.8) 10^3/ul Absolute Monos (auto) 1.0 H (0-0.8) 10^3/ul Absolute Eos (auto) 0.1 (0-0.6) 10^3/ul Absolute Basos (auto) 0.0 (0-0.2) 10^3/ul Absolute Nucleated RBC 0.0 10^3/ul Nucleated RBC % 0.0 INR (Anticoag Therapy) 0.99 (0.82-1.09) Sodium 134 L (135-145) mmol/L Potassium 3.7 (3.5-5.0) mmol/L Chloride 102 (101-111) mmol/L Carbon Dioxide 25 (22-32) mmol/L Anion Gap 7 (2-11) mmol/L BUN 6 (6-24) mg/dL Creatinine 0.44 L (0.51-0.95) mg/dL Est GFR ( Amer) 196.9 (>60) Est GFR (Non-Af Amer) 162.7 (>60) BUN/Creatinine Ratio 13.6 (8-20) Glucose 118 H (70-100) mg/dL Calcium 9.7 (8.6-10.3) mg/dL Total Bilirubin 0.40 (0.2-1.0) mg/dL AST 25 (13-39) U/L ALT 25 (7-52) U/L Alkaline Phosphatase 60 (34-104) U/L Troponin I 0.00 (<0.04) ng/mL Total Protein 7.0 (6.4-8.9) g/dL Albumin 4.0 (3.2-5.2) g/dL Globulin 3.0 (2-4) g/dL Albumin/Globulin Ratio 1.3 (1-3) Result Diagrams: 01/03/19 11:48 01/03/19 11:48 Lab Statement: Any lab studies that have been ordered have been reviewed, and results considered in the medical decision making process. - EKG 1136 Cardiac Rate: Tachycardia - 109bpm EKG Rhythm: Sinus Tachycardia ST Segment: Normal Ectopy: None Summary of EKG Findings: An EKG at 1136 reveals sinus tachycardia at 109bpm, nml axis, nml intervals. No STEMI. No acute changes. ED physician has reviewed and interpreted this EKG. Re-Evaluation - Re-Evaluation First Eval Re-Evaluation Time: 17:00 Comment: Patient remains tachycardic but afebrile. D/w d-dimer given tachycardia and CP. patient agreeable. Flu neg, CXR neg 2nd re-eval Re-Evaluation Time: 17:22 Change: Unchanged Comment: D-dimer negative. Pt will be given 1 more L of fluids then d/c'ed. 3rd re-eval Re-Evaluation Time: 17:45 Change: Unchanged Comment: Pt declines further fluids at this time as she wishes to go home to daughter. HR dec to 109, states she feels anxious about leaving her daughter at home. Will follow up w PCP Chest Pain Course/Dx - Course Course Of Treatment: 33 y/o F at 4 months p/w CP. Chest Pain DDX: The patient is well appearing, with tachycardia. Afebrile. Given the patient's clinical presentation, highest on differential is atypical CP/pleurisy. Although less likely, differential also includes the following: --Pneumothorax : Equal breath sounds, story inconsistent since gradual onset of symptoms. CXR shows no evidence of pneumothorax. Unlikely. --Cardiac tamponade: The history and physical are not concerning for tamponade. No Pulsus Paradoxus, no tachypnea. Unlikely. --Mediastinitis or esophageal rupture: The history is not consistent, as the patient has had no recent history of significant wretching, instrumentation, or mediastinal surgeries. Unlikely. --Aortic dissection: The patient does not describe the classical tearing chest pain radiating into the back, and the CXR does not show mediastinal widening or other signs of aortic dissection. Unlikely. --PE: Wells low risk, d dimer neg. --ACS: The initial EKG shows no ischemic changes. The initial troponin is not elevated. - Diagnoses Provider Diagnoses: URI (upper respiratory infection) Discharge ED - Sign-Out/Discharge Documenting (check all that apply): Patient Departure - Discharge Plan Condition: Stable Disposition: HOME Patient Education Materials: Pleurisy (ED) Referrals: Tiffanie Pineda MD [Primary Care Provider] - Additional Instructions: You were seen in the emergency department for chest pain congestion. Her flu was negative, your chest x-ray did not show any evidence of pneumonia. If any studies were not completed at the time of discharge you will be called with the relevant results. Please follow up with your primary care doctor in next 2-3 days and return to emergency department for worsening chest pain, trouble breathing, fevers or concerning symptoms. It was a pleasure taking care of you today. - Billing Disposition and Condition Condition: STABLE Disposition: Home - Attestation Statements Document Initiated by Newton: Yes Documenting Scribe: Rebecca Espinal Provider For Whom Newton is Documenting (Include Credential): Chandler Fox MD. Scribe Attestation: Rebecca Taylor, scribed for Chandler Fox MD. on 01/05/19 at 1113. Scribe Documentation Reviewed: Yes Provider Attestation: The documentation as recorded by the Rebecca wlash accurately reflects the service I personally performed and the decisions made by , Chandler Fox MD. Status of Scribe Document: Viewed
[2019-01-03] MEDS ORDERED: NS 0.9% 1000 ML** 1,000 ML IV ONE ×2 (14:48→17:22)
[2019-01-03] MEDS ORDERED: Acetaminophen TAB* 325 MG PO ONE (14:48)
[2019-01-03 17:01] LABS: Influenza A Molecular NEGATIVE (Negative); Influenza B Molecular NEGATIVE (Negative)
[2019-01-03 18:02] VITALS: BP 105/62
== END 2019-01-03 18:02 | disposition home or self-care (01) ==
LOC: ED 11:35
DX: J06.9 Acute upper respiratory infection, unspecified (principal); F41.9 Anxiety disorder, unspecified; F32.9 Major depressive disorder, single episode, unspecified; Z79.899 Other long term (current) drug therapy
CPT/HCPCS: 36415; 71046; 80053; 84484; 85025; 85379; 85610; 93005; 96360; 99283; A9270-GY

== ENCOUNTER 2019-01-20 08:25 | Emergency (ER) | payer OTHER ==
[2019-01-20] MEDS ORDERED: NS 0.9% 1000 ML** 1,000 ML IV ONE (08:54)
[2019-01-20 09:10] LABS: ABS Basophils 0.1 10^3/ul (0-0.2); ABS Eosinophils 0.2 10^3/ul (0-0.6); ABS Lymphocytes 1.7 10^3/ul (1.0-4.8); ABS Monocytes 0.7 10^3/ul (0-0.8); ABS Neutrophils 7.5 10^3/ul (1.5-7.7); Hematocrit 37 % (35-47); Hemoglobin 12.8 g/dL (12.0-16.0); Lymphocyte % 16.3 %; Mean Corpuscular HGB Conc 34 g/dL (31-36); Mean Corpuscular Hemoglobin 30 pg (27-31); Mean Corpuscular Volume 88 fL (80-97); Mean Platelet Volume 6.1 fL (7.4-10.4); Platelet Count 455 10^3/uL (150-450); Red Blood Count 4.22 10^6 /uL (3.70-4.87); Red Cell Distribution Width 13 % (10-15); White Blood Count 10.1 10^3/uL (3.5-10.8)
--- NOTE | 2019-01-20 09:10 | ED ---
Abdominal Pain/Female - HPI Summary HPI Summary: This patient is a 33 year old F presenting to [facility] with a chief complaint of pain in ribcage worsening last night. Pt is 18 weeks . Pt has been coughing for the few weeks, with chest pain. On 01/19/19, pt went to urgent care and was diagnosed with pneumonia. She was put on antibiotics as well. Last night pt could not sleep due to the pain in her ribs. A1 - History of Current Complaint Chief Complaint: EDUpperRespComplaint Stated Complaint: PNEMONIA AND RIB PAIN PER PT Time Seen by Provider: 01/20/19 08:48 Hx Obtained From: Patient Hx Last Menstrual Period: 08/12/18 ?: Yes Onset/Duration: Lasting Weeks, Still Present, Worse Since - 01/19 Timing: Constant Severity Initially: Moderate Severity Currently: Severe Pain Intensity: 11 Pain Scale Used: 0-10 Numeric Location: Other - Ribs Character: Sharp Aggravating Factor(s): Other: - Coughing Alleviating Factor(s): Nothing Associated Signs and Symptoms: Positive: Cough, Chest Pain Allergies/Adverse Reactions: Allergies Allergy/AdvReac Type Severity Reaction Status Date / Time No Known Allergies Allergy Verified 01/20/19 08:33 Home Medications: Home Medications Amoxicillin PO (*) [Amoxicillin 875 MG (*)] 875 mg PO BID 01/20/19 [History Confirmed 01/20/19] Azithromycin TAB* [Zithromax TAB (Z-ELIANA) 250 mg #6 tabs] 2 tab PO .TODAY, THEN 1 DAILY 01/20/19 [History Confirmed 01/20/19] Metoclopramide TAB* [Reglan TAB*] 10 mg PO Q6H PRN 01/20/19 [History Confirmed 01/20/19] PMH/Surg Hx/FS Hx/Imm Hx Endocrine/Hematology History: Denies: Hx Diabetes, Hx Thyroid Disease Cardiovascular History: Denies: Hx Hypertension Respiratory History: Denies: Hx Asthma, Hx Chronic Obstructive Pulmonary Disease (COPD) GI History: Denies: Hx Ulcer Sensory History: Reports: Hx Glaucoma Opthamlomology History: Reports: Hx Glaucoma Psychiatric History: Reports: Hx Anxiety, Hx Depression - Cancer History Hx Chemotherapy: No Hx Radiation Therapy: No Infectious Disease History: No Infectious Disease History: Denies: Hx Hepatitis, Hx Human Immunodeficiency Virus (HIV), History Other Infectious Disease, Traveled Outside the [place] in Last 30 Days - Family History Known Family History: Positive: Hypertension, Diabetes Negative: Cardiac Disease - Social History Alcohol Use: None Hx Substance Use: No Substance Use Type: Reports: None Hx Tobacco Use: No Smoking Status (MU): Never Smoked Tobacco Review of Systems Positive: Chest Pain Positive: Cough Positive: Abdominal Pain - Left rib cage area All Other Systems Reviewed And Are Negative: Yes Physical Exam - Summary Physical Exam Summary: VITAL SIGNS: Reviewed. GENERAL: Patient is a well-developed and nourished female who is lying comfortable in the stretcher. Patient is not in any acute respiratory distress. HEAD AND FACE: No signs of trauma. No ecchymosis, hematomas or skull depressions. No sinus tenderness. EYES: PERRLA, EOMI x 2, No injected conjunctiva, no nystagmus. EARS: Hearing grossly intact. Ear canals and tympanic membranes are within normal limits. MOUTH: Oropharynx within normal limits. NECK: Supple, trachea is midline, no adenopathy, no JVD, no carotid bruit, no c- spine tenderness, neck with full ROM. CHEST: Symmetric, no tenderness at palpation. LUNGS: Clear to auscultation bilaterally. No wheezing or crackles. CVS: Regular rate and rhythm, S1 and S2 present, no murmurs or gallops appreciated. ABDOMEN: Soft. No rebound, no guarding, and no masses palpated. Bowel sounds are normal. Tender left rib cage area. Tender on palpation. Abdominal distention secondary to 18 weeks . EXTREMITIES: FROM in all major joints, no edema, no cyanosis or clubbing. NEURO: Alert and oriented x 3. No acute neurological deficits. Speech is normal and follows commands. SKIN: Dry and warm Triage Information Reviewed: Yes Vital Signs On Initial Exam: Initial Vitals Temp Pulse Resp BP Pulse Ox 97.7 F 110 20 141/87 97 01/20/19 08:29 01/20/19 08:29 01/20/19 08:29 01/20/19 08:29 01/20/19 08:29 Vital Signs Reviewed: Yes Procedures - Sedation Patient Received Moderate/Deep Sedation with Procedure: No Diagnostics - Vital Signs Vital Signs Temp Pulse Resp BP Pulse Ox 01/20/19 08:29 97.7 F 110 20 141/87 97 - Laboratory Result Diagrams: 01/20/19 09:03 01/20/19 09:03 Lab Statement: Any lab studies that have been ordered have been reviewed, and results considered in the medical decision making process. - Radiology Ribs with CXR Radiology Interpretation Completed By: Radiologist Summary of Radiographic Findings: Ribs with CXR reveals, per radiologist, IMPRESSION: No radiographically apparent displaced rib fracture or pneumothorax. ED physician has reviewed this radiology report. Re-Evaluation - Re-Evaluation First Eval Re-Evaluation Time: 11:10 Comment: Dicussed results and plan of care with pt. Lung exam before discharge: CTA B/L. Good air exchange. No wheezing or crackles heard. CVS: S1 and S2 present. No murmurs appreciated. Patient is hemodynamically stable alert and oriented 3. Abdominal Pain Fem Course/Dx - Course Course Of Treatment: Patient is a 33-year-old female who presents to the emergency department with a chief complaint of dry cough and pain in the left side of the rib cage. Blood work without any significant abnormality except for the platelet count is 455, sodium is 133, glucose is 107, and CRP of 12.03. Since the patient had this persistent cough for a couple weeks; now she is having pain in the rib cage. I decided to do a rib cage x-ray to rule out a fracture. The patient was given Tylenol for pain. Patient was also hydrated with IV fluids. Influenza A and B is negative. Chest x-ray impression: No radiographically apparent displaced rib fracture or pneumothorax. Patient is not tachycardic or hypoxic. PERC criteria for PE is 0. Therefore no suspicion for a PE. On reassessment the patient sleeping comfortable. The patients pain has decreased. The patient is feeling better. Patient requests a prescription for Robitussin DM. She will be discharged home with follow-up with primary care physician. Patient is hemodynamically stable alert and oriented 3. I discussed all the findings and test results with the patient. Patient was instructed to return to the emergency room immediately if any of the symptoms return worsens. Plan of care was discussed with the patient, who understands and agrees. All questions were answered to patient satisfaction. There were no further complaints or concerns. Lung exam before discharge: CTA B/ L. Good air exchange. No wheezing or crackles heard. CVS: S1 and S2 present. No murmurs appreciated. Patient is alert and oriented x 3. Patient is hemodynamically stable. Patient will be discharged home with follow up PCP in the next 2-3 days - Diagnoses Provider Diagnoses: URI (upper respiratory infection), Cough Discharge ED - Sign-Out/Discharge Documenting (check all that apply): Patient Departure - Discharge - Discharge Plan Condition: Stable Disposition: HOME Prescriptions: GuaiFENesin DM* [Robitussin DM*] 10 ml PO Q6H PRN #120 ml PRN Reason: Cough Patient Education Materials: Upper Respiratory Infection (ED), Acute Cough (ED) Referrals: Tiffanie Pineda MD [Primary Care Provider] - 3 Days Additional Instructions: FOLLOW UP WITH YOUR PRIMARY CARE PROVIDER WITHIN ONE WEEK. RETURN TO THE ED FOR ANY WORSENING OR NEW SYMPTOMS. - Billing Disposition and Condition Condition: STABLE Disposition: Home - Attestation Statements Document Initiated by Newton: Yes Documenting Scribe: Fina Espinosa Provider For Whom Newton is Documenting (Include Credential): Aurelio Nguyen MD Scribe Attestation: Fina Taylor scribed for Aurelio Nguyen MD on 01/20/19 at 1841. Scribe Documentation Reviewed: Yes Provider Attestation: The documentation as recorded by the Fina walsh accurately reflects the service I personally performed and the decisions made by Aurelio ridley MD Status of Scribe Document: Viewed
[2019-01-20 09:28] LABS: Albumin 3.6 g/dL (3.2-5.2); Albumin/Globulin Ratio 1.1 (1-3); C Reactive Protein 12.03 mg/L (<8.01); Calcium 9.1 mg/dL (8.6-10.3); EGFR African American 219.8 (>60); EGFR Non-African American 181.6 (>60); Globulin 3.2 g/dL (2-4); Potassium 3.5 mmol/L (3.5-5.0); Total Bilirubin 0.7 mg/dL (0.2-1.0); Total Protein 6.8 g/dL (6.4-8.9)
[2019-01-20] MEDS ORDERED: Acetaminophen TAB* 325 MG PO ONE (09:34)
[2019-01-20 10:04] LABS: Influenza A Molecular NEGATIVE (Negative); Influenza B Molecular NEGATIVE (Negative)
[2019-01-20 11:34] VITALS: BP 108/64
== END 2019-01-20 11:42 | disposition home or self-care (01) ==
LOC: ED 08:25
DX: O26.892 Other specified pregnancy related conditions, second trimester (principal); J06.9 Acute upper respiratory infection, unspecified; R05 Cough; Z3A.18 18 weeks gestation of pregnancy
CPT/HCPCS: 36415; 80053; 85025; 86140; 96360; 96361; 99282; A9270-GY

== ENCOUNTER 2019-02-10 11:32 | Emergency (ER) | payer BC, OTHER ==
[2019-02-10 11:49] VITALS: BP 113/66
--- NOTE | 2019-02-10 12:42 | UC ---
Throat Pain/Nasal Vijay HPI - HPI Summary HPI Summary: 33-year-old female 20 weeks presents with 2 day history of sore throat. The pain radiates into her left ear. Reports related nausea at baseline. Patient states that she took one dose of naproxen last night with no improvement in her symptoms. Denies fever, chills, nasal congestion, dysphagia, chest pain, shortness of breath, abdominal pain, or vomiting. - History of Current Complaint Chief Complaint: UCGeneralIllness Stated Complaint: SORE THROAT, EARPAIN Time Seen by Provider: 02/10/19 12:13 Hx Obtained From: Patient Hx Last Menstrual Period: edc 07/04/19 Pain Intensity: 9 - Allergies/Home Medications Allergies/Adverse Reactions: Allergies Allergy/AdvReac Type Severity Reaction Status Date / Time No Known Allergies Allergy Verified 02/10/19 11:50 PMH/Surg Hx/FS Hx/Imm Hx Previously Healthy: Yes - Denies significant PMH - Surgical History Surgical History: None - Family History Known Family History: Positive: Hypertension, Diabetes - Social History Occupation: Employed Full-time Lives: With Family Alcohol Use: None Substance Use Type: None Smoking Status (MU): Never Smoked Tobacco - Immunization History Most Recent Influenza Vaccination: 01/08/15 Most Recent Tetanus Shot: 12/12/14 Most Recent Pneumonia Vaccination: unknown Review of Systems All Other Systems Reviewed And Are Negative: Yes Constitutional: Negative: Fever, Chills Skin: Negative: Rash Eyes: Negative: Drainage, Eye Redness ENT: Positive: Sore Throat, Ear Ache. Negative: Nasal Discharge, Sinus Congestion, Sinus Pain/Tenderness Respiratory: Negative: Shortness Of Breath, Cough Cardiovascular: Negative: Palpitations, Chest Pain Gastrointestinal: Positive: Nausea. Negative: Abdominal Pain, Vomiting, Diarrhea Genitourinary: Positive: Negative Musculoskeletal: Positive: Negative Neurological: Positive: Negative Is Patient Immunocompromised?: No Physical Exam - Summary Physical Exam Summary: GENERAL APPEARANCE: Well developed, well nourished, alert and cooperative, and appears to be in no acute distress. EYES: Conjunctiva clear. No drainage. EARS: External auditory canals and tympanic membranes clear, hearing grossly intact. NOSE: No nasal discharge. THROAT: Pharyngeal erythema. 2+ tonsils without exudate or lesions. Uvula midline. NECK: Neck supple, non-tender without lymphadenopathy. CARDIAC: Normal S1 and S2. No S3, S4 or murmurs. Rhythm is regular. There is no peripheral edema, cyanosis or pallor. Extremities are warm and well perfused. Capillary refill is less than 2 seconds. Peripheral pulses intact. LUNGS: Clear to auscultation without rales, rhonchi, wheezing or diminished breath sounds. ABDOMEN: Positive bowel sounds. Soft, nondistended, nontender. No guarding or rebound. No masses or hepatosplenomegally. MUSKULOSKELETAL: ROM intact to all extremities. No joint erythema or tenderness. Normal muscular development. Normal gait. SKIN: Skin normal color, texture and turgor with no lesions or eruptions. Triage Information Reviewed: Yes Vital Signs: Initial Vital Signs Temp 99 F 02/10/19 11:46 Pulse 104 02/10/19 11:46 Resp 20 02/10/19 11:46 BP 113/66 02/10/19 11:46 Pulse Ox 99 02/10/19 11:46 Vital Signs Reviewed: Yes Throat Pain/Nasal Course/Dx - Course Course Of Treatment: 33-year-old female 20 weeks presents with 2 day history of sore throat. The pain radiates into her left ear. Reports related nausea at baseline. Patient states that she took one dose of naproxen last night with no improvement in her symptoms. Denies fever, chills, nasal congestion, dysphagia, chest pain, shortness of breath, abdominal pain, or vomiting. Afebrile. Vital signs stable. Patient had pharyngeal erythema with 2+ tonsils without exudate or lesions, no significant lymphadenopathy, and otherwise unremarkable exam. Rapid strep test was negative. Results were reviewed with the patient. Due to the severity of her pain and after review of the risks and benefits I prescribed a dose of dexamethasone 8 mg 1 dose to help with the pain and inflammation. Patient was counseled not to use [id number] NSAIDs. anesthetic encouraged to use acetaminophen as directed. She is to continue with symptomatic treatment for a viral pharyngitis. She is to follow-up with her primary care provider in 3 days if symptoms are not improving. Anticipatory guidance and warning symptoms were reviewed with the patient. Verbalizes understanding and a course of plan of care. - Differential Dx/Diagnosis Differential Diagnosis/HQI/PQRI: Mononucleosis, Peritonsillar Abscess, Pharyngitis, Tonsillitis, URI Provider Diagnosis: Acute viral pharyngitis Discharge ED - Sign-Out/Discharge Documenting (check all that apply): Patient Departure All imaging exams completed and their final reports reviewed: No Studies - Discharge Plan Condition: Stable Disposition: HOME Patient Education Materials: Pharyngitis (ED) Referrals: Tiffanie Pineda MD [Primary Care Provider] - 3 Days Additional Instructions: Your rapid strep test in the clinic today was negative. Your symptoms are likely from a viral infection. Viral infections do not respond to antibiotics and are limited to the treatment of symptoms. Viral infections typically run their course in 7-10 days. You were given a dose of a steroid called dexamethasone 8 mg in the clinic to help with the pain and inflammation. This is a long-acting steroid and will remain in your system for up to 3 days. Drink plenty of fluids to avoid dehydration especially if you are running any fever. Use salt water gargles several times a day. Take over the counter acetaminophen (Tylenol) according to directions as needed for pain or fever. You may also use Chloraseptic spray or Cepacol lonzenges according to directions which contain a numbing medication and can provide some temporary relief from your sore throat. Follow up with your primary care provider in 3 days if symptoms persist. Seek immediate medical attention in the emergency room if you have fever greater than 100.5 F despite taking acetaminophen or ibuprofen, are unable to swallow or develop drooling, are unable to open your mouth fully, are unable to eat or drink, have pain that is not relieved with over the counter pain medication, or have any difficulty breathing. - Billing Disposition and Condition Condition: STABLE Disposition: Home - Attestation Statements Provider Attestation: I was available for consult. This patient was seen by the JOLANTA. The patient was not presented to, seen by, or examined by me. -Ramos
[2019-02-10] MEDS ORDERED: Dexamethasone TAB* 4 MG PO ONE (12:53)
== END 2019-02-10 13:13 | disposition home or self-care (01) ==
LOC: UCEAST 11:32
DX: O99.512 Diseases of the respiratory system complicating pregnancy, second trimester (principal); O99.89 Other specified diseases and conditions complicating pregnancy, childbirth and the puerperium; J02.9 Acute pharyngitis, unspecified; H92.02 Otalgia, left ear; R11.0 Nausea; Z3A.20 20 weeks gestation of pregnancy
CPT/HCPCS: 87651; 99212; G0463; J8540

== ENCOUNTER 2019-02-13 15:39 | Emergency (ER) | payer BC, OTHER ==
[2019-02-13 16:04] VITALS: BP 125/80
--- NOTE | 2019-02-13 16:29 | UC ---
Throat Pain/Nasal Vijay HPI - HPI Summary HPI Summary: 33 yo female with three week hx of severe nasal congestion/post nasal drip and sore throat sinus pressure and pain gum tenderness no fever occassiona epistaxis thick tenacious green nasal d/c 5 mos - History of Current Complaint Chief Complaint: UCRespiratory Stated Complaint: RECHECK EAR AND THROAT PAIN Time Seen by Provider: 02/13/19 15:45 Hx Obtained From: Patient Hx Last Menstrual Period: edc 07/04/19 Onset/Duration: Gradual Onset, Lasting Weeks Severity: Severe Pain Intensity: 9 Pain Scale Used: 0-10 Numeric Cough: Nonproductive Associated Signs & Symptoms: Positive: Hoarseness, Sinus Discomfort, Nasal Discharge - Epiglottits Risk Factors Epiglottis Risk Factors: Negative - Allergies/Home Medications Allergies/Adverse Reactions: Allergies Allergy/AdvReac Type Severity Reaction Status Date / Time No Known Allergies Allergy Verified 02/13/19 16:04 PMH/Surg Hx/FS Hx/Imm Hx Previously Healthy: Yes - Surgical History Surgical History: None - Family History Known Family History: Positive: Hypertension, Diabetes - Social History Alcohol Use: None Substance Use Type: None Smoking Status (MU): Never Smoked Tobacco - Immunization History Most Recent Influenza Vaccination: 01/08/15 Most Recent Tetanus Shot: 12/12/14 Most Recent Pneumonia Vaccination: unknown Review of Systems All Other Systems Reviewed And Are Negative: Yes Constitutional: Positive: Fatigue Skin: Positive: Negative Eyes: Positive: Negative ENT: Positive: Dental Pain, Sore Throat, Nasal Discharge, Sinus Congestion, Sinus Pain/Tenderness Respiratory: Positive: Cough Cardiovascular: Positive: Negative Gastrointestinal: Positive: Negative Genitourinary: Positive: Negative Motor: Positive: Negative Neurovascular: Positive: Negative Musculoskeletal: Positive: Negative Neurological: Positive: Negative Psychological: Positive: Negative Physical Exam Triage Information Reviewed: Yes Appearance: Well-Appearing, No Pain Distress, Well-Nourished Vital Signs: Initial Vital Signs Temp 98.8 F 02/13/19 15:58 Pulse 100 02/13/19 15:58 Resp 14 02/13/19 15:58 BP 125/80 02/13/19 15:58 Pulse Ox 96 02/13/19 15:58 Vital Signs Reviewed: Yes Eyes: Positive: Conjunctiva Clear ENT: Positive: Pharyngeal erythema, Nasal congestion, Nasal drainage, TMs normal , Hoarse voice, Sinus tenderness, Uvula midline. Negative: Tonsillar swelling, Tonsillar exudate, Trismus, Muffled voice Neck: Positive: Supple, Nontender, No Lymphadenopathy Respiratory: Positive: Lungs clear, Normal breath sounds, No respiratory distress, No accessory muscle use Cardiovascular: Positive: RRR, No Murmur Abdomen Description: Positive: Other: - gravid uterus Bowel Sounds: Positive: Present Musculoskeletal: Positive: ROM Intact, No Edema Neurological: Positive: Alert Psychological Exam: Normal Skin Exam: Normal Throat Pain/Nasal Course/Dx - Differential Dx/Diagnosis Provider Diagnosis: Sinusitis Discharge ED - Sign-Out/Discharge Documenting (check all that apply): Patient Departure All imaging exams completed and their final reports reviewed: No Studies - Discharge Plan Condition: Stable Disposition: HOME Prescriptions: Amoxicillin PO (*) [Amoxicillin 875 MG (*)] 875 mg PO BID #20 tab Fluticasone NASAL SPRAY 50MCG* [Flonase NASAL SPRAY 50MCG*] 2 spray BOTH NARES BID #1 btl Patient Education Materials: Sinusitis (ED) Forms: *Work Release Referrals: Tiffanie Pineda MD [Primary Care Provider] - If Needed Additional Instructions: warm facial compresses continue saline nasal spray - Billing Disposition and Condition Condition: STABLE Disposition: Home
== END 2019-02-13 16:45 | disposition home or self-care (01) ==
LOC: UCEAST 15:39
DX: O99.512 Diseases of the respiratory system complicating pregnancy, second trimester (principal); J32.9 Chronic sinusitis, unspecified; J02.9 Acute pharyngitis, unspecified; R05 Cough; O99.89 Other specified diseases and conditions complicating pregnancy, childbirth and the puerperium; K08.89 Other specified disorders of teeth and supporting structures
CPT/HCPCS: 99212; G0463

== ENCOUNTER 2019-06-20 03:34 | Inpatient (IN) | payer BC, OTHER ==
[2019-06-20] MEDS ORDERED: Lactated Ringers 1000 ml BAG 1,000 ML IV ONE ×2 (03:56→05:18)
[2019-06-20] MEDS ORDERED: Buffered Lidocaine 1% SYRIN 1 ml INTRADERM ONE (03:56)
[2019-06-20] MEDS ORDERED: Lactated Ringers 1000 ml BAG 1,000 ML IV SCH ×3 (04:00→09:00)
[2019-06-20 04:23] LABS: ABS Eosinophils 0.1 10^3/ul (0-0.6); ABS Lymphocytes 2.5 10^3/ul (1.0-4.8); ABS Monocytes 0.5 10^3/ul (0-0.8); Eosinophil % 1.1 %; Hematocrit 42 % (35-47); Hemoglobin 14.6 g/dL (12.0-16.0); Lymphocyte % 35.4 %; Mean Corpuscular HGB Conc 35 g/dL (31-36); Mean Corpuscular Hemoglobin 29 pg (27-31); Mean Corpuscular Volume 84 fL (80-97); Mean Platelet Volume 8.6 fL (7.4-10.4); Nucleated Red Blood Cells % 0.2; Platelet Count 199 10^3/uL (150-450); Red Blood Count 4.99 10^6 /uL (3.70-4.87); Red Cell Distribution Width 18 % (10-15); White Blood Count 7.1 10^3/uL (3.5-10.8)
[2019-06-20] MEDS ORDERED: OBEPIDURAL 250 ML EPIDURAL ONE (04:29)
[2019-06-20 04:39] LABS: Albumin 3.5 g/dL (3.2-5.2); Albumin/Globulin Ratio 1.1 (1-3); EGFR African American 137.7 (>60); EGFR Non-African American 113.8 (>60); Globulin 3.1 g/dL (2-4); Potassium 3.8 mmol/L (3.5-5.0); Total Bilirubin 0.6 mg/dL (0.2-1.0); Total Protein 6.6 g/dL (6.4-8.9)
[2019-06-20 04:41] LABS: Urine Benzodiazepine Screen None Detected (None Detect); Urine Opiates Screen None Detected (None Detect)
[2019-06-20] MEDS ORDERED: Bupivacaine 0.25% SDV PF* 10 ML VIAL INJ ONE (04:51)
[2019-06-20] MEDS ORDERED: Sodium Citrate/Citric Acid LIQ 15 ML UDC PO PRN (05:18)
[2019-06-20] MEDS ORDERED: Phenylephrine 40 mcg/mL 10mL (400mcg) SYRINGE IV PUSH PRN (05:18)
[2019-06-20] MEDS ORDERED: EPHEDrine (Pressors) 50 MG/ML VIAL IV PUSH PRN (05:18)
[2019-06-20] MEDS ORDERED: OBEPIDURAL 250 ML EPIDURAL SCH (06:00)
[2019-06-20] MEDS ORDERED: Glycerin ADULT 2.4 gm SUPP PR PRN (08:01)
[2019-06-20] MEDS ORDERED: Oxytocin 10 UNITS/ML 1 ML VIAL IV ONE (08:01)
[2019-06-20] MEDS ORDERED: Witch Hazel PAD JAR TOPICAL PRN (08:01)
[2019-06-20] MEDS ORDERED: Dibucaine 1% OINT 28.35 GM TUBE PR PRN (08:01)
[2019-06-20] MEDS ORDERED: Oxytocin in LR 20 UNITS/1,000 ML BAG IVPB ONE (09:04)
[2019-06-20] MEDS ORDERED: Oxytocin in LR 20 UNITS/1,000 ML BAG IVPB SCH (10:00)
[2019-06-21 06:16] LABS: ABS Basophils 0.1 10^3/ul (0-0.2); ABS Eosinophils 0.1 10^3/ul (0-0.6); ABS Lymphocytes 2.4 10^3/ul (1.0-4.8); ABS Monocytes 0.5 10^3/ul (0-0.8); Eosinophil % 1.8 %; Hematocrit 38 % (35-47); Hemoglobin 12.6 g/dL (12.0-16.0); Lymphocyte % 32.3 %; Mean Corpuscular HGB Conc 34 g/dL (31-36); Mean Corpuscular Hemoglobin 29 pg (27-31); Mean Corpuscular Volume 86 fL (80-97); Mean Platelet Volume 8.5 fL (7.4-10.4); Nucleated Red Blood Cells % 0.2; Platelet Count 167 10^3/uL (150-450); Red Cell Distribution Width 18 % (10-15); White Blood Count 7.6 10^3/uL (3.5-10.8)
[2019-06-21 07:45] VITALS: BP 129/82
== END 2019-06-21 09:24 | disposition home or self-care (01) | DRG 560 ==
LOC: MCHOBOUT 03:34 → MCHOB 03:54
PROVIDERS: ADMIT Obstetrics & Gynecology; ATTEND Obstetrics & Gynecology
PROC: 10E0XZZ Delivery of Products of Conception, External Approach (ICD-10-PCS; principal; 2019-06-20)
PROC: 4A1HXCZ Monitoring of Products of Conception, Cardiac Rate, External Approach (ICD-10-PCS; 2019-06-20)
DX: O80 Encounter for full-term uncomplicated delivery (principal); Z37.0 Single live birth; Z3A.38 38 weeks gestation of pregnancy